=== PATIENT | male | born 1950 | race Caucasian/White ===

== ENCOUNTER 2019-09-21 15:03 | Outpatient (CLI) | payer MEDICARE, OTHER, SELFPAY ==
[2019-09-21 15:55] LABS: Hemoglobin A1C 6.8 % (<5.7)
[2019-09-21 15:57] LABS: Albumin Level 4.7 g/dL (3.5-5.1); Estimated Glomerular Filt Rate 60; Glucose 126 mg/dL (75-110)
[2019-09-28 03:42] LABS: Hematocrit 54.1 % (38.5-50.0); Hemoglobin 17.5 g/dL (13.2-17.1); MCH 32.6 pg (27.0-33.0); MCV 100.9 FL (80.0-100.0); RDW 14.3 % (11.0-15.0); Red Blood Cell Count 5.36 Mill/uL (4.20-5.80)
== END 2019-09-21 15:04 | disposition home or self-care (01) ==
PROVIDERS: PCP Internal Medicine; Visit Provider Orthopaedic Surgery
DX: M17.11 Unilateral primary osteoarthritis, right knee (principal); E13.9 Other specified diabetes mellitus without complications
CPT/HCPCS: 36415; 82040; 82565; 82947; 83021; 83036; 85014; 85018; 85041

== ENCOUNTER 2019-10-16 11:42 | Outpatient (CLI) | payer MEDICARE, OTHER, SELFPAY ==
--- NOTE | 2019-10-16 12:43 | ECG_ITS ---
Measurements Intervals [place] Rate: 63 P: 11 [place]: 181 QRS: 1 QRSD: 89 T: -11 QT: 373 QTc: 382 Interpretive Statements SINUS RHYTHM LOW QRS VOLTAGE IN PRECORDIAL LEADS DELAYED PRECORDIAL R/S TRANSITION INFERIOR INFARCT, AGE INDETERMINATE BASELINE ARTIFACT- I, II, AVR, AVL ABNORMAL ECG Electronically Signed On 10-16-2019 12:59:53 TEXTILE DESIGNER by Curt Reveles D.O.
[2019-10-16 13:12] LABS: Basophils Percent Auto 0.6 % (0.2-1.2); Eosinophils Absolute Auto 0.3 K/mm3 (0-0.3); Eosinophils Percent Auto 4.3 % (0-4.4); Hematocrit 51.9 % (42.0-52.0); Hemoglobin 17.4 g/dL (14.0-18.0); Immature Granulocyte Absolute 0.06 K/mm3 (0.00-0.031); Immature Granulocyte Percent A 0.9 % (0-0.5); Mean Corpuscular HGB Conc 33.5 g/dl (32-36); Mean Corpuscular Hemoglobin 32.1 pg (26-34); Mean Corpuscular Volume 95.8 fl (80-100); Mean Platelet Volume 10.1 fl (7.4-10.4); Monocytes Absolute Auto 0.5 K/mm3 (0.1-0.6); Monocytes Percent Auto 7.9 % (2.6-8.5); Neutrophils Absolute Auto 3.6 K/mm3 (1.3-6.7); Neutrophils Percent Auto 54.3 % (45.5-73.1); Platelet Count Result 155 k/mm3 (150-375); Red Blood Count 5.42 M/mm3 (4.6-6.20); Red Cell Distribution Width 12.6 % (11.5-14.5); White Blood Count 6.6 K/mm3 (4.5-10.0)
[2019-10-16 13:21] LABS: Urine Cotinine NEGATIVE
[2019-10-16 13:31] LABS: Blood Urea Nitrogen 16 mg/dL (9-20); Calcium 9.7 mg/dL (8.4-10.2); Carbon Dioxide 30 mmol/L (22-30); Chloride 101 mmol/L (98-107); Estimated Glomerular Filt Rate 60; Glucose 165 mg/dL (75-110); Potassium 4.9 mmol/L (3.4-5.0); Sodium 138 mmol/L (137-145)
== END 2019-10-16 11:43 | disposition home or self-care (01) ==
PROVIDERS: Anesthesiology; PCP Internal Medicine; Visit Provider Orthopaedic Surgery
DX: Z01.818 Encounter for other preprocedural examination (principal); E11.9 Type 2 diabetes mellitus without complications; R94.31 Abnormal electrocardiogram [ECG] [EKG]; M16.11 Unilateral primary osteoarthritis, right hip
CPT/HCPCS: 36415; 80048; 80307; 85025; 87081; 93005

== ENCOUNTER 2020-01-02 10:41 | Outpatient (CLI) | payer MEDICARE, OTHER, SELFPAY ==
--- NOTE | 2020-01-02 | ECG_ITS ---
Measurements Intervals [place] Rate: 56 P: 40 [place]: 173 QRS: 29 QRSD: 82 T: 50 QT: 403 QTc: 392 Interpretive Statements SINUS BRADYCARDIA DELAYED PRECORDIAL R/S TRANSITION LOW QRS VOLTAGE IN PRECORDIAL LEADS NONSPECIFIC T-WAVE ABNORMALITY- INF/LAT LEADS BORDERLINE ECG Electronically Signed On 01-02-2020 11:40:01 CDT by Curt Reveles D.O.
[2020-01-02 11:12] LABS: Hematocrit 53.7 % (42.0-52.0); Hemoglobin 18.4 g/dL (14.0-18.0)
[2020-01-02 11:22] LABS: Hemoglobin A1C 7.2 % (<5.7)
[2020-01-02 11:23] LABS: Albumin Level 4.7 g/dL (3.5-5.1); Estimated Glomerular Filt Rate 60; Glucose 228 mg/dL (75-110)
== END 2020-01-02 10:42 | disposition home or self-care (01) ==
PROVIDERS: PCP Internal Medicine; Visit Provider Orthopaedic Surgery
DX: M17.11 Unilateral primary osteoarthritis, right knee (principal); E13.9 Other specified diabetes mellitus without complications; R94.31 Abnormal electrocardiogram [ECG] [EKG]
CPT/HCPCS: 36415; 82040; 82565; 82947; 83036; 85014; 85018; 93005

== ENCOUNTER 2020-01-31 13:53 | Outpatient (CLI) | payer MEDICARE, OTHER, SELFPAY ==
[2020-01-31 15:01] LABS: Basophils Percent Auto 0.8 % (0.2-1.2); Eosinophils Absolute Auto 0.2 K/mm3 (0-0.3); Eosinophils Percent Auto 4.5 % (0-4.4); Hemoglobin 16.3 g/dL (14.0-18.0); Immature Granulocyte Absolute 0.04 K/mm3 (0.00-0.031); Immature Granulocyte Percent A 0.8 % (0-0.5); Lymphocytes Absolute Auto 1.72 K/mm3 (0.9-3.2); Lymphocytes Percent Auto 32.5 % (18.3-44.2); Mean Corpuscular Hemoglobin 32.7 pg (26-34); Mean Corpuscular Volume 96.2 fl (80-100); Mean Platelet Volume 9.8 fl (7.4-10.4); Monocytes Absolute Auto 0.5 K/mm3 (0.1-0.6); Monocytes Percent Auto 8.5 % (2.6-8.5); Neutrophils Absolute Auto 2.8 K/mm3 (1.3-6.7); Neutrophils Percent Auto 52.9 % (45.5-73.1); Platelet Count Result 158 k/mm3 (150-375); Red Blood Count 4.99 M/mm3 (4.6-6.20); Red Cell Distribution Width 12.7 % (11.5-14.5); White Blood Count 5.3 K/mm3 (4.5-10.0)
[2020-01-31 15:13] LABS: Urine Cotinine NEGATIVE
[2020-01-31 15:14] LABS: Blood Urea Nitrogen 16 mg/dL (9-20); Calcium 9.5 mg/dL (8.4-10.2); Carbon Dioxide 32 mmol/L (22-30); Chloride 102 mmol/L (98-107); Estimated Glomerular Filt Rate 60; Glucose 169 mg/dL (75-110); Potassium 5.3 mmol/L (3.4-5.0); Sodium 138 mmol/L (137-145)
== END 2020-01-31 13:54 | disposition home or self-care (01) ==
LOC: ANHSURGERY 13:59
PROVIDERS: Anesthesiology; PCP Internal Medicine; Visit Provider Orthopaedic Surgery
DX: Z01.818 Encounter for other preprocedural examination (principal); M16.11 Unilateral primary osteoarthritis, right hip; E11.9 Type 2 diabetes mellitus without complications
CPT/HCPCS: 36415; 80048; 80307; 85025; 87081

== ENCOUNTER 2020-03-01 00:19 | Outpatient (CLI) | payer MEDICARE, OTHER, SELFPAY ==
[2020-03-01 18:31] LABS: SARS-CoV-2 RNA PCR Negative
== END 2020-03-01 00:20 | disposition home or self-care (01) ==
LOC: ANHCOVIDDT 00:20
PROVIDERS: PCP Internal Medicine; Visit Provider Orthopaedic Surgery
DX: Z01.812 Encounter for preprocedural laboratory examination (principal); Z11.59 Encounter for screening for other viral diseases
CPT/HCPCS: 87635; C9803; U0003

== ENCOUNTER 2020-03-04 14:37 | Inpatient (IN) | payer MEDICARE, OTHER, SELFPAY ==
[2019-10-16 12:13] VITALS: BP 120/88; PULSE 68; RESP 20; TEMP 36.6; O2SAT 95; BMI 30.9
[2020-01-31 14:13] VITALS: BP 132/84; PULSE 64; TEMP 36.4; O2SAT 95; BMI 30.7
--- NOTE | 2020-03-03 12:44 | WPDANESEPPF ---
Anes - Initial Pre Proc Eval Procedure: Operation Date: 03/04/20 10:00 Proposed Procedures p Right Total Hip Arthroplasty - Sameer York MD Date/Time: 03/03/20 12:44 Surgeon: Sameer York MD Pre Op Diagnosis: OA Right Hip Patient Data Age: 69 Gender: M Height: 1.8 m Weight: 99.8 kg Last Vital Signs Temp 36.4 C 01/31/20 14:13 Pulse 64 01/31/20 14:13 Resp 20 10/16/19 12:13 BP 132/84 01/31/20 14:13 Pulse Ox 95 01/31/20 14:13 Allergies Allergy/AdvReac Type Severity Reaction Status Date / Time Penicillins Allergy Unknown Rash Verified 02/11/20 08:41 Sulfa (Sulfonamide Allergy Unknown Rash Verified 02/11/20 08:41 Antibiotics) Home Medications Medication Instructions Recorded Confirmed Type aspirin [Ecotrin Low Strength] 81 mg PO DAILY 10/16/19 01/31/20 History atorvastatin 20 mg DAILY 10/16/19 01/31/20 History cholecalciferol (vitamin D3) 2,000 unit PO DAILY 10/16/19 01/31/20 History dulaglutide [Trulicity] 0.75 mg SUBCUT WEEKLY 10/16/19 01/31/20 History empagliflozin 25 mg PO DAILY 10/16/19 01/31/20 History gabapentin 300 mg PO DAILY 10/16/19 01/31/20 History gabapentin 600 mg PO HS 10/16/19 01/31/20 History insulin glargine [Lantus U-100 44 unit SUBCUT DAILY 10/16/19 01/31/20 History Insulin] levothyroxine 112 mcg PO DAILY 10/16/19 01/31/20 History meloxicam 15 mg PO DAILY 10/16/19 01/31/20 History metoprolol tartrate 50 mg PO BID 10/16/19 01/31/20 History pantoprazole 40 mg PO QAM 10/16/19 01/31/20 History sertraline 150 mg PO DAILY 10/16/19 01/31/20 History valsartan 80 mg PO DAILY 10/16/19 01/31/20 History diclofenac sodium 1 % topical gel 4 gm TOPICAL QID #100 gm 11/01/19 01/31/20 Rx hydrocodone-acetaminophen 1 tablet PO Q6H PRN 01/31/20 01/31/20 History hydrocodone 5 mg-acetaminophen 325 1 - 2 tablet PO BID PRN #30 tablet 02/11/20 02/11/20 Rx mg tablet Patient hx anesthesia problems: none Family hx anesthesia problems: none PMFSH Past Medical History Medical History Arthritis Back pain Diabetes Gastroesophageal reflux disease High cholesterol Hypertension Hypothyroidism Incomplete tear of right rotator cuff Obesity DELMER (obstructive sleep apnea) Primary osteoarthritis of right hip Primary osteoarthritis of right knee Surgical History Surgical History History of hammertoe correction History of repair of rotator cuff History of right knee surgery Family History Family History Mother Family history of arthritis Sibling Family history of malignant neoplasm Social History Social History Smoking status: Never smoker Alcohol intake: never Anes - Eval Final PreProcedure Day of Procedure 03/03/20 12:44 Patient weight: obese Heart: regular rate and rhythm Lungs: clear to auscultation and normal air movement Airway: Mallampati scale class II Neurological: alert and oriented Last oral intake: >/= 8 hours ASA classification: III Emergent: no Anesthetic plan: proceed Anesthesia type and monitoring: general LMA and ETT Informed Consent: The patient's anesthetic plan and its attendant risks and benefits were discussed with the patient/family/POA. Questions were solicited and answers provided to the satisfaction of the patient/family/POA.
[2020-03-04] VITALS (16 sets, daily range): BP systolic 79–133; BP diastolic 55–82; PULSE 54–62; RESP 8–20; TEMP 35.6–36.4; O2SAT 62–100
--- NOTE | ~2020-03-04 | XR_ITS ---
XR hip RT min 2V DATE: 03/04/2020 12:59 INDICATION: Right total hip replacement TECHNIQUE: Portable postoperative AP and crosstable lateral views of right hip COMPARISON: 10/22/2019 [facility] right hip FINDINGS: Status post right femoral head and neck resection and placement of bipolar right femoral he ad prosthesis in the acetabular fossa. There is mild expected postoperative subcutaneous emphysema. There is osteoarthritis of the left hip. The pubic symphysis and sacroiliac joints are intact. IMPRESSION: Right bipolar hip replacement Reviewed, dictated and finalized at location B.
--- NOTE | 2020-03-04 07:13 | WPDHPUPDATE1 ---
History and Physical Update Update Date/Time: 03/04/20 07:13 History and Physical has been reviewed, including an updated exam of the patient. There are NO changes in the patient's condition. Risks, benefits, and alternatives have been discussed and questions answered. Patient agrees to proceed with procedure.
[2020-03-04] MEDS: LACTATED RINGERS 1,000 ML 30 ML IV CONT ×2 (09:45→12:34)
[2020-03-04] MEDS: ACETAMINOPHEN 500 MG TABLET 1000 MG PO (09:45)
[2020-03-04] MEDS: KETOROLAC 15 MG/ML VIAL (*BKC) IV PUSH (09:49)
[2020-03-04] MEDS: TRANEXAMIC ACID 1,000MG/ISO100 1,000 MG/100 ML BAG 200 MG IVPB (09:49)
[2020-03-04 09:52] LABS: Glucose Point of Care 128 (65-105)
[2020-03-04] MEDS: ceFAZolin 2 GM/D5W 50 ML 2 GM/50 ML BAG IVPB (10:17)
--- NOTE | 2020-03-04 12:26 | P.OP_ITS ---
Procedure Note - Detailed Date of procedure: 03/04/20 Pre-op diagnosis: OA Right Hip Post-op diagnosis: same Procedure performed: Total hip arthroplasty. Description of procedure: Leg length discrepancy correction (right short) with slight lengthening. Implants: The Accolade II hip stem, 127 degree size 6 , was utilized with excellent press-fit. The 56 mm ADM acetabular component was impacted with excellent press-fit stability. The +0 , 28 mm Biolox ceramic femoral head was utilized. Anesthesia: GLMA Surgeon: Sameer York MD Estimated blood loss (mL): 300 Drains: No Pathology: none sent Complications: None Condition: stable Disposition: PACU Findings: OPERATIVE DETAILS: The patient was given preoperative antibiotics. A general anesthetic was administered. The patient was carefully placed in the lateral decubitus position on the PEG board. The shoulders and hips were carefully positioned for component and leg length positioning reference. The hip was prepped and draped in the usual sterile fashion. A longitudinal incision was created over the posterior aspect of the greater trochanter. Careful dissection was brought down through the deep fascia with electrocautery. A minimally invasive optimized posterior approach to the hip was performed. The short external rotators and capsule were taken down in an L-shaped capsulotomy. The tissue was tagged for later repair using number 2 high strength suture. The femoral neck was measured and taken in situ. The femoral head was removed. The acetabulum was carefully exposed. The inferior capsule was released. The labrum was resected. The acetabulum was sequentially reamed to one over the intended cup size. The cup was impacted into position with excellent press-fit. Typical anatomic landmarks, including the bony contact points as well as the inferior transverse acetabular ligament were used to confirm cup positioning with preoperative templating. Attention was turned to the femur, which was carefully exposed. The hip was reamed and then broached sequentially. Excellent press-fit was obtained with the broach. The hip was trialed. Measurements were utilized, including the lesser trochanter as well as the center of the femoral head and the tip of the trochanter, and excellent assessment of the offset and leg lengths were confirmed. The real component was impacted into position. Trialing confirmed appropriate leg length and offset with soft tissue balancing as well apparent feel of the leg, both at the knee and the heel. Soft tissues were assessed using the the iliotibial band. Reduction of the posterior capsule and external rotators were also used as a secondary assessment. The hip was copiously irrigated with pulsatile lavage antibiotic solution periodically throughout the procedure. The real components were then assembled and reduced. The hip was stable throughout typical maneuvers, including extension, external rotation to 70 degrees, the position of sleep as well as flexion to 90 degrees with internal rotation past 45 degrees. The shake test confirmed stability without impingement. Osteophytes were removed as necessary. The short external rotators and capsule were repaired back to the posterior trochanter through drill holes. The deep fascia was repaired with running number 2 Quill suture, followed by 0 Stratafix suture and 2-0 Stratafix suture in the dermis. Steri- Strips were placed on the skin, followed by a sterile silver occlusive dressing. There were no complications. Meticulous hemostasis was maintained with the AquaMantys device. The patient was brought to the recovery room in stable condition. There were no complications.
[2020-03-04 14:05] LABS: Glucose Point of Care 172 (65-105)
[2020-03-04 15:57] LABS: Hematocrit 43.2 % (42.0-52.0); Hemoglobin 14.7 g/dL (14.0-18.0)
[2020-03-04] MEDS: ASPIRIN 81 MG ENTERIC TABLET PO (17:56)
[2020-03-04] MEDS: DOCUSATE SODIUM 100 MG CAPSULE PO (21:03)
[2020-03-04] MEDS: METOPROLOL TARTRATE 50 MG TAB PO (21:03)
[2020-03-04] MEDS: GABAPENTIN 300 MG CAPSULE 600 MG PO (21:03)
[2020-03-05] VITALS (9 sets, daily range): BP systolic 85–115; BP diastolic 48–70; PULSE 58–80; RESP 12–20; TEMP 36–36.4; O2SAT 20–99
[2020-03-05 05:28] LABS: Basophils Absolute Auto 0.1 K/mm3 (0.0-0.1); Basophils Percent Auto 0.5 % (0.2-1.2); Eosinophils Percent Auto 0.3 % (0-4.4); Hematocrit 41.4 % (42.0-52.0); Hemoglobin 13.9 g/dL (14.0-18.0); Immature Granulocyte Absolute 0.03 K/mm3 (0.00-0.031); Immature Granulocyte Percent A 0.3 % (0-0.5); Lymphocytes Absolute Auto 1.31 K/mm3 (0.9-3.2); Lymphocytes Percent Auto 13.3 % (18.3-44.2); Mean Corpuscular HGB Conc 33.6 g/dl (32-36); Mean Corpuscular Hemoglobin 32.9 pg (26-34); Mean Corpuscular Volume 98.1 fl (80-100); Mean Platelet Volume 10.6 fl (7.4-10.4); Monocytes Absolute Auto 0.9 K/mm3 (0.1-0.6); Monocytes Percent Auto 9.3 % (2.6-8.5); Neutrophils Absolute Auto 7.5 K/mm3 (1.3-6.7); Neutrophils Percent Auto 76.3 % (45.5-73.1); Platelet Count Result 147 k/mm3 (150-375); Red Blood Count 4.22 M/mm3 (4.6-6.20); Red Cell Distribution Width 13.2 % (11.5-14.5); White Blood Count 9.9 K/mm3 (4.5-10.0)
[2020-03-05 05:32] LABS: Blood Urea Nitrogen 21 mg/dL (9-20); Calcium 8.7 mg/dL (8.4-10.2); Carbon Dioxide 28 mmol/L (22-30); Chloride 98 mmol/L (98-107); Estimated CRCL calculation 66 ml/min; Estimated Glomerular Filt Rate > 60; Glucose 210 mg/dL (75-110); Potassium 4.2 mmol/L (3.4-5.0); Sodium 133 mmol/L (137-145)
[2020-03-05] MEDS: LEVOTHYROXINE SODIUM 112 MCG TABLET PO (05:47)
--- NOTE | 2020-03-05 07:37 | P.PNAN_ITS ---
Anes - Prog Note Post-Op Date/Time: 03/05/20 07:37 Cardiovascular status: normal Respiratory status: normal Airway patency: baseline Mental status: baseline Post-Op hydration status: normal Vital Signs: Last Vital Signs Temp 36.1 C L 03/05/20 04:45 Pulse 62 03/05/20 04:45 Resp 20 03/05/20 00:45 BP 92/62 L 03/05/20 04:45 Pulse Ox 20 L 03/05/20 04:45 I/O: Intake & Output 03/04/20 03/04/20 03/05/20 15:59 23:59 07:59 Intake Total 600 510 540 Output Total 300 Balance 600 510 240 Laboratory Tests 03/05/20 05:03 03/05/20 05:03 03/04/20 03/04/20 03/04/20 09:30 09:49 14:02 WBC RBC Hgb Hct MCV MCH MCHC RDW Plt Count MPV Immature Gran % (Auto) Neut % (Auto) Lymph % (Auto) [place] % (Auto) Eos % (Auto) Baso % (Auto) Lymph # (Auto) [place] # (Auto) Eos # (Auto) Baso # (Auto) Abs Immat Gran (auto) Absolute Neuts (auto) Absolute Nucleated RBC Nucleated RBC % Sodium Potassium Chloride Carbon Dioxide BUN Creatinine Estim Creat Clear Calc Estimated GFR Glucose POC Capillary Glucose 128 H 172 H Calcium Blood Type O Positive Antibody Screen Negative 03/04/20 03/05/20 03/05/20 15:05 05:03 05:03 WBC 9.9 RBC 4.22 L Hgb 14.7 13.9 L Hct 43.2 41.4 L MCV 98.1 MCH 32.9 MCHC 33.6 RDW 13.2 Plt Count 147 L MPV 10.6 H Immature Gran % (Auto) 0.3 Neut % (Auto) 76.3 H Lymph % (Auto) 13.3 L [place] % (Auto) 9.3 H Eos % (Auto) 0.3 Baso % (Auto) 0.5 Lymph # (Auto) 1.31 [place] # (Auto) 0.9 H Eos # (Auto) 0.0 Baso # (Auto) 0.1 Abs Immat Gran (auto) 0.03 Absolute Neuts (auto) 7.5 H Absolute Nucleated RBC 0.0 Nucleated RBC % 0.0 Sodium 133 L Potassium 4.2 Chloride 98 Carbon Dioxide 28 BUN 21 H Creatinine 1.10 Estim Creat Clear Calc 66 Estimated GFR > 60 Glucose 210 H POC Capillary Glucose Calcium 8.7 Blood Type Antibody Screen Post-procedural complaints: none Patient Feedback: Patient satisfied with anesthetic care.
[2020-03-05] MEDS: INSULIN GLARGINE (*BKC) 100 UNITS/ML 44 UNITS SUB-Q (09:19)
[2020-03-05] MEDS: MELOXICAM 7.5 MG TABLET 15 MG PO (09:20)
[2020-03-05] MEDS: GABAPENTIN 300 MG CAPSULE PO (09:20)
[2020-03-05] MEDS: METOPROLOL TARTRATE 50 MG TAB PO (09:20)
[2020-03-05] MEDS: VALSARTAN 80 MG TABLET PO (09:20)
[2020-03-05] MEDS: SERTRALINE HCL 50 MG TABLET 150 MG PO (09:20)
[2020-03-05] MEDS: PANTOPRAZOLE 40 MG TABLET PO (09:21)
[2020-03-05] MEDS: CHOLECALCIFEROL 1,000 UNIT TABLET 2000 UNITS PO (09:21)
[2020-03-05] MEDS: DOCUSATE SODIUM 100 MG CAPSULE PO ×2 (09:21→21:31)
[2020-03-05] MEDS: ASPIRIN 81 MG ENTERIC TABLET PO ×2 (09:21→17:01)
[2020-03-05] MEDS: ATORVASTATIN 20 MG TABLET PO (09:21)
[2020-03-05 09:39] LABS: Glucose Point of Care 292 (65-105)
[2020-03-05 11:44] LABS: Glucose Point of Care 238 (65-105)
[2020-03-05] MEDS: INSULIN ASPART (*BKC) 100 UNITS/ML SUB-Q ×2 (12:00→17:00)
--- NOTE | 2020-03-05 12:31 | PM.IMCN ---
Assessment and Plan Assessment and plan (1) Primary osteoarthritis of right hip: Code(s): M16.11 - Unilateral primary osteoarthritis, right hip Status: Acute Assessment and Plan: Mike Monson is a 69 year old male With past medical history of diabetes for which patient is taking Lantus 44 units daily, metformin 500 mg q.day, and Trulicity once weekly, patient has history of hypertension which patient is taking valstran 80 mg q.day, metoprolol 50 mg b.i.d. and hyperlipidemia for which patient is taking Lipitor 20 mg q.day patient had been seen his orthopedic surgeon with severe osteoarthritis right hip conservative management failed and patient was taken to OR and had a right hip total arthroplasty, POD#1, today patient states the pain in the hip is persisting, he was able to ambulate with physical therapy, he denies any abdominal pain nausea or vomiting fever or chills, chest pain palpitation or dizziness, (2) Hypertension: Code(s): I10 - Essential (primary) hypertension Status: Acute Assessment and Plan: patient blood pressure is on soft sound most likely secondary pain medication and dehydration will continue to monitor (3) Diabetes: Code(s): E11.9 - Type 2 diabetes mellitus without complications Status: Acute Assessment and Plan: will resume patient's home medication and monitor low sliding scale HPI Data of Consult Consult date: 03/05/20 Requesting Physician: Sameer York MD Primary Care Provider: Rosanna WardMD Consult Narrative Narrative: Mike Monson is a 69 year old male With past medical history of diabetes for which patient is taking Lantus 44 units daily, metformin 500 mg q.day, and Trulicity once weekly, patient has history of hypertension which patient is taking valstran 80 mg q.day, metoprolol 50 mg b.i.d. and hyperlipidemia for which patient is taking Lipitor 20 mg q.day patient had been seen his orthopedic surgeon with severe osteoarthritis right hip conservative management failed and patient was taken to OR and had a right hip total arthroplasty, POD#1, today patient states the pain in the hip is persisting, he was able to ambulate with physical therapy, he denies any abdominal pain nausea or vomiting fever or chills, chest pain palpitation or dizziness, Review of Systems Review of Systems: All systems reviewed & are unremarkable except as noted in HPI and below PMFSH Past Medical History Medical History Arthritis Back pain Diabetes Gastroesophageal reflux disease High cholesterol Hypertension Hypothyroidism Incomplete tear of right rotator cuff Obesity DELMER (obstructive sleep apnea) Primary osteoarthritis of right hip Primary osteoarthritis of right knee Surgical History Surgical History History of hammertoe correction History of repair of rotator cuff History of right knee surgery Family History Family History Mother Family history of arthritis Sibling Family history of malignant neoplasm Social History Social History Smoking packs per day: 3 Smoking cigarettes per day: 60.0 Years smoked: 25 Smoking pack-years: 75.00 Smoking status: Former smoker Tobacco type: cigarettes Alcohol intake: former Substance use: never Gender identity (if verbalized by the patient): Male Spiritual care concerns: No Meds Home Medications and Allergies Home Medications Medication Instructions Recorded Confirmed Type aspirin [Ecotrin Low Strength] 81 mg PO DAILY 10/16/19 03/04/20 History atorvastatin 20 mg DAILY 10/16/19 03/04/20 History cholecalciferol (vitamin D3) 2,000 unit PO DAILY 10/16/19 03/04/20 History dulaglutide [Trulicity] 0.75 mg SUBCUT WEEKLY 10/16/19 03/04/20 History
[2020-03-05 16:44] LABS: Glucose Point of Care 271 (65-105)
--- NOTE | 2020-03-05 16:45 | PM.PNORT ---
Progress Note: A&P Assessment and Plan (1) Status post total hip replacement, right: Code(s): Z96.641 - Presence of right artificial hip joint Status: Acute Assessment and Plan: postoperative day 1 status post right total hip arthroplasty. Moderate pain. Hypotension. Appreciate hospitalist assistance. Will monitor these issues. Continue therapy. Possible discharge home tomorrow. Subjective Subjective Date/Time Seen: 03/05/20 16:45 Interval history: Some pain control issues. Exam Narrative: Exam Narrative: Wound is healing well. No drainage, or hematoma. Anterior tibialis and EHL 5/5. No edema. Calves non tender. Const: Orientation/consciousness: patient oriented x3 Neuro: General: patient oriented x3 Extrem: General: capillary refill normal, no calf tenderness bilaterally and no pedal edema Psych: Affect: normal affect Objective Data Vital Signs Vital Signs: Vital Signs - 24 hr 03/04/20 20:45 03/04/20 21:03 03/05/20 00:45 Temperature 36.1 C L 36.3 C L Pulse Rate 60 60 60 Respiratory Rate 20 20 Blood Pressure 91/56 L 97/58 L Pulse Oximetry 92 94 03/05/20 04:45 03/05/20 08:10 03/05/20 08:12 Temperature 36.1 C L 36.0 C L Pulse Rate 62 58 L Respiratory Rate 12 Blood Pressure 92/62 L 87/58 L 98/70 L Pulse Oximetry 20 L 98 03/05/20 09:20 03/05/20 09:56 03/05/20 12:45 Temperature 36.4 C L 36.1 C L Pulse Rate 58 L 63 80 Respiratory Rate 14 16 Blood Pressure 85/51 L 94/48 L Pulse Oximetry 99 90 Intake/Output Intake/Output: Intake & Output 03/02/20 03/03/20 03/04/20 03/05/20 23:59 23:59 23:59 23:59 Intake Total 1110 1340 Output Total 300 Balance 1110 1040 Meds/Results Medications: Active Medications Generic Name Dose Route Start Last Admin Trade Name Freq PRN Reason Stop Dose Admin Aspirin 81 mg 03/04/20 17:00 03/05/20 09:21 Aspirin Ec PO 81 mg BID RODOLFO Administration Atorvastatin Calcium 20 mg 03/05/20 09:00 03/05/20 09:21 Lipitor PO 20 mg DAILY RODOLFO Administration Dextrose 12.5 gm 03/05/20 09:44 Dextrose 50% Syringe IV PUSH PRN PRN Hypoglycemia Protocol Diazepam 5 mg 03/04/20 14:37 Valium Po PO Q6H PRN Anxiety/Muscle Spasm Docusate Sodium 100 mg 03/04/20 21:00 03/05/20 09:21 Colace Capsule PO 100 mg Q12HR RODOLFO Administration Gabapentin 300 mg 03/05/20 09:00 03/05/20 09:20 Neurontin PO 300 mg DAILY RODOLFO Administration Gabapentin 600 mg 03/04/20 21:00 03/04/20 21:03 Neurontin PO 600 mg HS RODOLFO Administration Glucagon 1 mg 03/05/20 09:44 Glucagon For Inj IM PRN PRN Hypoglycemia Protocol Glucose 15 gm 03/05/20 09:44 Glutose 15 PO PRN PRN Hypoglycemia Protocol Acetaminophen 1,000 mg in 100 mls @ 400 mls/hr 03/04/20 18:00 03/05/20 12:07 Ofirmev 1,000 Mg Ivpb IVPB 03/05/20 18:01 Infused Q6HR RODOLFO Infusion Dextrose 1,000 mls @ 100 mls/hr 03/05/20 09:44 Dextrose 5% 1,000 Ml IVPB PRN PRN Hypoglycemia Protocol Insulin Aspart 2 - 5 units 03/05/20 12:00 03/05/20 12:00 Novolog SUB-Q 2 units TIDWM RODOLFO Administration Protocol Insulin Glargine 44 units 03/05/20 09:00 03/05/20 09:19 Lantus SUB-Q 44 units DAILY RODOLFO Administration Levothyroxine Sodium 112 mcg 03/05/20 06:30 03/05/20 05:47 Synthroid PO 112 mcg DAILY@0630 RODOLFO Administration Magnesium Hydroxide 30 ml 03/04/20 14:37 Milk Of Magnesia PO BID PRN Constipation Meloxicam 15 mg 03/05/20 09:00 03/05/20 09:20 Mobic PO 04/04/20 09:01 15 mg DAILY RODOLFO Administration Meperidine HCl 100 mg 03/04/20 14:37 Demerol IM Q3H PRN Pain10, breakthough only Metoprolol Tartrate 50 mg 03/04/20 21:00 03/05/20 09:20 Lopressor PO 50 mg Q12HR RODOLFO Administration Naloxone HCl 0.1 mg 03/04/20 14:37 Narcan IV PUSH Q2M PRN Opiate Revers
[2020-03-05] MEDS: GABAPENTIN 300 MG CAPSULE 600 MG PO (21:31)
[2020-03-05 23:28] LABS: Glucose Point of Care 242 (65-105)
[2020-03-06 01:16] VITALS: BP 117/68; PULSE 68; RESP 20; TEMP 36.2; O2SAT 94
[2020-03-06 06:01] VITALS: BP 120/63; PULSE 77; RESP 20; TEMP 36.6; O2SAT 93
[2020-03-06] MEDS: LEVOTHYROXINE SODIUM 112 MCG TABLET PO (06:30)
[2020-03-06 07:54] LABS: Glucose Point of Care 190 (65-105)
--- NOTE | 2020-03-06 08:38 | PCOTNOTE ---
Attempted to see patient this am, however patient declined. Pt stated he already dressed this morning. Verbally reviewed dressing techniques with adaptive equipment and hip precautions. Issued long handled sponge for safe showering at home. Pt stated he will have assistance from at home. Pt has no further concerns at this time as pertains to OT.
[2020-03-06] MEDS: INSULIN GLARGINE (*BKC) 100 UNITS/ML 24 UNITS SUB-Q (08:41)
[2020-03-06 08:44] VITALS: PULSE 77
[2020-03-06] MEDS: METOPROLOL TARTRATE 50 MG TAB PO ×2 (08:44→21:43)
[2020-03-06] MEDS: CHOLECALCIFEROL 1,000 UNIT TABLET 2000 UNITS PO (08:44)
[2020-03-06] MEDS: PANTOPRAZOLE 40 MG TABLET PO (08:45)
[2020-03-06] MEDS: ASPIRIN 81 MG ENTERIC TABLET PO ×2 (08:45→17:16)
[2020-03-06] MEDS: SERTRALINE HCL 50 MG TABLET 150 MG PO (08:45)
[2020-03-06] MEDS: ATORVASTATIN 20 MG TABLET PO (08:45)
[2020-03-06] MEDS: GABAPENTIN 300 MG CAPSULE PO (08:45)
[2020-03-06] MEDS: MELOXICAM 7.5 MG TABLET 15 MG PO (08:45)
[2020-03-06] MEDS: DOCUSATE SODIUM 100 MG CAPSULE PO ×2 (08:45→21:43)
[2020-03-06] MEDS: VALSARTAN 80 MG TABLET PO (08:45)
[2020-03-06 11:39] LABS: Glucose Point of Care 293 (65-105)
[2020-03-06] MEDS: INSULIN ASPART (*BKC) 100 UNITS/ML SUB-Q ×2 (11:57→17:15)
--- NOTE | 2020-03-06 13:43 | PM.IMPN ---
Progress Note: A&P Assessment and Plan (1) Primary osteoarthritis of right hip: Code(s): M16.11 - Unilateral primary osteoarthritis, right hip Status: Acute Assessment and Plan: 03/06/20 13:43 Mike Monson is a 69 year old male With past medical history of diabetes for which patient is taking Lantus 44 units daily, metformin 500 mg q.day, and Trulicity once weekly, patient has history of hypertension which patient is taking valstran 80 mg q.day, metoprolol 50 mg b.i.d. and hyperlipidemia for which patient is taking Lipitor 20 mg q.day patient had been seen his orthopedic surgeon with severe osteoarthritis right hip conservative management failed and patient was taken to OR and had a right hip total arthroplasty, POD#2, today patient states the pain in the hip is better , he was able to ambulate with physical therapy, he denies any abdominal pain nausea or vomiting fever or chills, denies, chest pain palpitation or dizziness, patient will be seen by his surgeon may discharge him home today (2) Hypertension: Code(s): I10 - Essential (primary) hypertension Status: Acute Assessment and Plan: patient blood pressure is on soft sound most likely secondary pain medication and dehydration will continue to monitor, today patient blood pressure is trending up close to normal. (3) Diabetes: Code(s): E11.9 - Type 2 diabetes mellitus without complications Status: Acute Assessment and Plan: will resume patient's home medication and monitor low sliding scale Subjective Date/time seen: 03/06/20 13:43 Mike Monson is a 69 year old male With past medical history of diabetes for which patient is taking Lantus 44 units daily, metformin 500 mg q.day, and Trulicity once weekly, patient has history of hypertension which patient is taking valstran 80 mg q.day, metoprolol 50 mg b.i.d. and hyperlipidemia for which patient is taking Lipitor 20 mg q.day patient had been seen his orthopedic surgeon with severe osteoarthritis right hip conservative management failed and patient was taken to OR and had a right hip total arthroplasty, POD#2, today patient states the pain in the hip is better , he was able to ambulate with physical therapy, he denies any abdominal pain nausea or vomiting fever or chills, denies, chest pain palpitation or dizziness, patient will be seen by his surgeon may discharge him home today Review of Systems Review of Systems: All systems reviewed & are unremarkable except as noted in HPI and below Exam Const: General: comfortable and no acute distress HENMT: General nose exam: Normal nares present Mouth: Yes moist mucous membranes Eyes: General: appearance normal, both eyes and all related structures Sclera: sclerae normal Neck: Neck: supple Resp: Effort & Inspection: normal respiratory effort Auscultation: clear to auscultation bilaterally Cardio: Rate: regular rate Rhythm: regular rhythm GI: Auscultation: normal bowel sounds Skin: General skin exam: normal color Neuro: Speech: normal speech Sensory Exam: normal sensation Extrem: Other: bilateral lower extremity symmetric there is no internal or external rotation Psych: Affect: Anxious affect present Objective Data Vital Signs Vital Signs: Vital Signs - 24 hr 03/05/20 16:45 03/05/20 22:14 03/06/20 01:16 Temperature 97.5 F L 97.3 F L 97.2 F L Pulse Rate 63 71 68 Respiratory Rate 14 20 20 Blood Pressure 95/57 L 115/63 117/68 Pulse Oximetry 97 95 94 03/06/20 06:01 03/06/20 08:44 Temperature 98 F Pulse Rate 77 77 Respiratory Rate 20 Blood Pressure 120/63 Pulse Oximetry 93 Intake/Output Intake/Output: Intake & Output 03/03/20 03/04/20 03/05/20 03/06/20 23:59 23:59 23:59 23:59 Intake Total 1110 3180 430 Output Total 900 1200 Balance 1110 2280 -770 Meds/Results Medications: Active Medications Generic Name Dose Route Start Last Admin Trade Name Tiagoq BRAXTON Mckaya
[2020-03-06 14:00] VITALS: BP 93/55; PULSE 65; RESP 17; TEMP 36.6; O2SAT 95
--- NOTE | 2020-03-06 16:15 | PM.PNORT ---
Progress Note: A&P Assessment and Plan (1) Status post total hip replacement, right: Code(s): Z96.641 - Presence of right artificial hip joint Status: Acute Assessment and Plan: Progressing slowly. Blood pressure is improving. Pain control adequate. Plan discharge home tomorrow morning. Subjective Subjective Date/Time Seen: 03/06/20 16:15 Post Op day: 2 Interval history: Moderate pain. Mobilizing slowly. Exam Narrative: Exam Narrative: Wound healing well. Light touch sensation intact. No drainage. Mild swelling. Objective Data Vital Signs Vital Signs: Vital Signs - 24 hr 03/05/20 16:45 03/05/20 22:14 03/06/20 01:16 Temperature 36.4 C L 36.3 C L 36.2 C L Pulse Rate 63 71 68 Respiratory Rate 14 20 20 Blood Pressure 95/57 L 115/63 117/68 Pulse Oximetry 97 95 94 03/06/20 06:01 03/06/20 08:44 03/06/20 14:00 Temperature 36.6 C 36.6 C Pulse Rate 77 77 65 Respiratory Rate 20 17 Blood Pressure 120/63 93/55 L Pulse Oximetry 93 95 Intake/Output Intake/Output: Intake & Output 03/03/20 03/04/20 03/05/20 03/06/20 23:59 23:59 23:59 23:59 Intake Total 1110 3180 430 Output Total 900 1200 Balance 1110 2280 -770 Meds/Results Medications: Active Medications Generic Name Dose Route Start Last Admin Trade Name Freq PRN Reason Stop Dose Admin Aspirin 81 mg 03/04/20 17:00 03/06/20 08:45 Aspirin Ec PO 81 mg BID RODOLFO Administration Atorvastatin Calcium 20 mg 03/05/20 09:00 03/06/20 08:45 Lipitor PO 20 mg DAILY RODOLFO Administration Dextrose 12.5 gm 03/05/20 09:44 Dextrose 50% Syringe IV PUSH PRN PRN Hypoglycemia Protocol Diazepam 5 mg 03/04/20 14:37 Valium Po PO Q6H PRN Anxiety/Muscle Spasm Docusate Sodium 100 mg 03/04/20 21:00 03/06/20 08:45 Colace Capsule PO 100 mg Q12HR RODOLFO Administration Gabapentin 300 mg 03/05/20 09:00 03/06/20 08:45 Neurontin PO 300 mg DAILY RODOLFO Administration Gabapentin 600 mg 03/04/20 21:00 03/05/20 21:31 Neurontin PO 600 mg HS RODOLFO Administration Glucagon 1 mg 03/05/20 09:44 Glucagon For Inj IM PRN PRN Hypoglycemia Protocol Glucose 15 gm 03/05/20 09:44 Glutose 15 PO PRN PRN Hypoglycemia Protocol Dextrose 1,000 mls @ 100 mls/hr 03/05/20 09:44 Dextrose 5% 1,000 Ml IVPB PRN PRN Hypoglycemia Protocol Insulin Aspart 2 - 5 units 03/05/20 12:00 03/06/20 11:57 Novolog SUB-Q 3 units TIDWM RODOLFO Administration Protocol Insulin Glargine 44 units 03/05/20 09:00 03/05/20 09:19 Lantus SUB-Q 44 units DAILY RODOLFO Administration Levothyroxine Sodium 112 mcg 03/05/20 06:30 03/06/20 06:30 Synthroid PO 112 mcg DAILY@0630 RODOLFO Administration Magnesium Hydroxide 30 ml 03/04/20 14:37 Milk Of Magnesia PO BID PRN Constipation Meloxicam 15 mg 03/05/20 09:00 03/06/20 08:45 Mobic PO 04/04/20 09:01 15 mg DAILY RODOLFO Administration Meperidine HCl 100 mg 03/04/20 14:37 Demerol IM Q3H PRN Pain10, breakthough only Metoprolol Tartrate 50 mg 03/04/20 21:00 03/06/20 08:44 Lopressor PO 50 mg Q12HR RODOLFO Administration Naloxone HCl 0.1 mg 03/04/20 14:37 Narcan IV PUSH Q2M PRN Opiate Reversal Ondansetron HCl 4 mg 03/04/20 14:37 Zofran Inj IV PUSH Q4H PRN Nausea And Vomiting Oxycodone HCl 5 mg 03/04/20 14:37 03/05/20 08:47 Roxicodone Ir Tablet PO 5 mg Q4H PRN Administration Pain Rated 4-6 Oxycodone HCl 10 mg 03/04/20 14:37 03/06/20 08:49 Roxicodone Ir Tablet PO 10 mg Q4H PRN Administration Pain Rated 7-10 Pantoprazole Sodium 40 mg 03/05/20 09:00 03/06/20 08:45 Protonix PO 40 mg QAM RODOLFO Administration Sertraline HCl 150 mg 03/05/20 09:00 03/06/20 08:45 Zoloft PO 150 mg DAILY RODOLFO Administration Valsartan 80 mg 03/05/20 09:00 03/06/20 08:4
[2020-03-06 16:39] LABS: Glucose Point of Care 245 (65-105)
[2020-03-06 21:43] VITALS: PULSE 70
[2020-03-06] MEDS: GABAPENTIN 300 MG CAPSULE 600 MG PO (21:43)
[2020-03-06] MEDS: diazePAM 5 MG TABLET PO (21:43)
[2020-03-06 22:09] LABS: Glucose Point of Care 303 (65-105)
[2020-03-06 22:13] VITALS: BP 104/62; PULSE 70; RESP 20; TEMP 36.4; O2SAT 96
[2020-03-07] MEDS: LEVOTHYROXINE SODIUM 112 MCG TABLET PO (05:34)
[2020-03-07 05:42] VITALS: BP 124/75; PULSE 66; RESP 20; TEMP 36.3; O2SAT 97
[2020-03-07 07:55] LABS: Glucose Point of Care 184 (65-105)
[2020-03-07] MEDS: ATORVASTATIN 20 MG TABLET PO (09:40)
[2020-03-07] MEDS: ASPIRIN 81 MG ENTERIC TABLET PO (09:40)
[2020-03-07] MEDS: GABAPENTIN 300 MG CAPSULE PO (09:41)
[2020-03-07] MEDS: DOCUSATE SODIUM 100 MG CAPSULE PO (09:41)
[2020-03-07] MEDS: PANTOPRAZOLE 40 MG TABLET PO (09:41)
[2020-03-07] MEDS: CHOLECALCIFEROL 1,000 UNIT TABLET 2000 UNITS PO (09:41)
[2020-03-07] MEDS: MELOXICAM 7.5 MG TABLET 15 MG PO (09:41)
[2020-03-07] MEDS: SERTRALINE HCL 50 MG TABLET 150 MG PO (09:41)
[2020-03-07 09:42] VITALS: PULSE 68
[2020-03-07] MEDS: METOPROLOL TARTRATE 50 MG TAB PO (09:42)
[2020-03-07] MEDS: VALSARTAN 80 MG TABLET PO (09:42)
[2020-03-07] MEDS: INSULIN GLARGINE (*BKC) 100 UNITS/ML 44 UNITS SUB-Q (09:44)
--- NOTE | 2020-03-07 10:45 | PM.DS ---
DS: Admitting Diagnosis Admitting Diagnosis Admitting Diagnosis: Type 2 diabetes mellitus without complications DS: Discharge Diagnosis Discharge Diagnosis (1) Status post total hip replacement, right: Code(s): Z96.641 - Presence of right artificial hip joint Status: Acute DS: Summary Hospital Course Reason for hospitalization: Total hip arthroplasty. Hospital Course: Hypotension post operatively. Hospitalist for medical and diabetes management. Progressed slowly with therapy. Status at Discharge Functional status at discharge: uses cane/walker Time Spent with Patient Time attestation: Total time spent providing and/or coordinating discharge services: Exam Const: General: no acute distress Resp: Effort & Inspection: normal respiratory effort Skin: Other: Wound healing well. Mepilex dressing intact. No hematoma or drainage. Neuro: Motor exam (neuro): 5/5 motor strength present throughout Sensory Exam: normal sensation Psych: Mental Status: mental status grossly normal Speech and movement: Normal speech and movement present DS: Data Data Completed and Pending Labs on day of discharge: Labs from last 24 hours 03/07/20 03/06/20 03/06/20 07:45 21:47 16:34 POC Capillary Glucose 184 H 303 H 245 H 03/06/20 11:34 POC Capillary Glucose 293 H Discharge Plan Discharge Attending physician on discharge: Sameer York Consulting providers: Parth Diehl Discharging Clinician: Sameer York Patient Disposition: Home, Self-Care Activity: may shower Diet: as tolerated Wound Care Instructions: follow printed instructions Discharge Instructions: See instruction sheet. Patient Instructions: Antibiotic Form, Pain Management (DC), Pain Management (GEN), Joint Replacement Surgery (GEN), Total Hip Replacement (DC) Stand Alone Forms: General Discharge Information Follow-up/Referrals: Sameer York MD [Physician] - Discharge Medications: New oxycodone-acetaminophen 5-325 mg tablet 1 - 2 tablet PO Q4-6H MDD 8 tablets PRN (Reason: pain) Qty: 40 RF: 0 Continued atorvastatin 20 mg Tablet 20 mg DAILY RF: 0 Lantus U-100 Insulin 100 unit/mL Solution 44 unit SUBCUT DAILY RF: 0 meloxicam 15 mg Tablet 15 mg PO DAILY RF: 0 sertraline 100 mg Tablet 150 mg PO DAILY RF: 0 valsartan 80 mg Tablet 80 mg PO DAILY RF: 0 aspirin [Ecotrin Low Strength] 81 mg Tablet,Delayed Release (Dr/Ec) 81 mg PO DAILY RF: 0 pantoprazole 40 mg Tablet,Delayed Release (Dr/Ec) 40 mg PO QAM RF: 0 metoprolol tartrate 50 mg Tablet 50 mg PO BID RF: 0 gabapentin 300 mg Capsule 300 mg PO DAILY RF: 0 gabapentin 300 mg Capsule 600 mg PO HS RF: 0 levothyroxine 112 mcg Tablet 112 mcg PO DAILY RF: 0 empagliflozin 25 mg Tablet 25 mg PO DAILY RF: 0 Trulicity 0.75 mg/0.5 mL Pen Injector 0.75 mg SUBCUT WEEKLY RF: 0 cholecalciferol (vitamin D3) 2,000 unit Tablet,Chewable 2,000 unit PO DAILY RF: 0 diclofenac sodium [Voltaren] 1 % gel 4 gm TOPICAL QID Qty: 100 RF: 0 Discontinued hydrocodone-acetaminophen 5-325 mg tablet 1 - 2 tablet PO BID PRN (Reason: pain) Qty: 30 RF: 0 hydrocodone-acetaminophen 10-325 mg Tablet 1 tablet PO Q6H PRN (Reason: Pain) RF: 0 Date of admission: 03/04/20 14:37 Primary Care Provider: Ed,Rosanna Epps Admitting Provider: Sameer York Attending physician on admission: Sameer York Quality VTE Prophylaxis VTE prophylaxis: pharmacologic ordered
[2020-03-07 11:37] LABS: Glucose Point of Care 192 (65-105)
--- NOTE | 2020-05-05 15:46 | P.PNIM_ITS ---
Progress Note: A&P Assessment and Plan (1) Primary osteoarthritis of right hip: Code(s): M16.11 - Unilateral primary osteoarthritis, right hip Status: Acute Assessment and Plan: 03/06/20 13:43 Mike Monson is a 69 year old male With past medical history of diabetes for which patient is taking Lantus 44 units daily, metformin 500 mg q.day, and Trulicity once weekly, patient has history of hypertension which patient is taking valstran 80 mg q.day, metoprolol 50 mg b.i.d. and hyperlipidemia for which patient is taking Lipitor 20 mg q.day patient had been seen his orthopedic surgeon with severe osteoarthritis right hip conservative management failed and patient was taken to OR and had a right hip total arthroplasty, POD#3, today patient states the pain in the hip is better , he was able to ambulate with physical therapy, he denies any abdominal pain nausea or vomiting fever or chills, denies, chest pain palpitation or dizziness, patient will be seen by his surgeon may discharge him home today (2) Hypertension: Code(s): I10 - Essential (primary) hypertension Status: Acute Assessment and Plan: patient blood pressure is on soft sound most likely secondary pain medication and dehydration will continue to monitor, today patient blood pressure is trending up close to normal. (3) Diabetes: Code(s): E11.9 - Type 2 diabetes mellitus without complications Status: Acute Assessment and Plan: will resume patient's home medication and monitor low sliding scale Subjective Date/time seen: 03/07/2020 Mike Monson is a 69 year old male With past medical history of diabetes for which patient is taking Lantus 44 units daily, metformin 500 mg q.day, and Trulicity once weekly, patient has history of hypertension which patient is taking valstran 80 mg q.day, metoprolol 50 mg b.i.d. and hyperlipidemia for wh ich patient is taking Lipitor 20 mg q.day patient had been seen his orthopedic surgeon with severe osteoarthritis right hip conservative management failed and patient was taken to OR and had a right hip total arthroplasty, POD#3, today patient states the pain in the hip is better , he was able to ambulate with physical therapy, he denies any abdominal pain nausea or vomiting fever or chills, denies, chest pain palpitation or dizziness, patient will be seen by his surgeon may discharge him home today Review of Systems Review of Systems: All systems reviewed & are unremarkable except as noted in HPI and below Exam Const: General: comfortable and no acute distress HENMT: General nose exam: Normal nares present Mouth: Yes moist mucous membranes Eyes: General: appearance normal, both eyes and all related structures Sclera: sclerae normal Neck: Neck: supple Resp: Effort & Inspection: normal respiratory effort Auscultation: clear to auscultation bilaterally Cardio: Rate: regular rate Rhythm: regular rhythm GI: Auscultation: normal bowel sounds Skin: General skin exam: normal color Neuro: Speech: normal speech Sensory Exam: normal sensation Extrem: Other: bilateral lower extremity symmetric there is no internal or external rotation Psych: Affect: Anxious affect present Objective Data Meds/Results Radiology Results: ITS Impressions Hip X-Ray 03/04/20 13:06 IMPRESSION: Right bipolar hip replacement Quality VTE Prophylaxis VTE prophylaxis: pharmacologic ordered
== END 2020-03-07 12:30 | disposition home or self-care (01) | DRG 470 ==
LOC: ANH2MED 14:42
PROVIDERS: Admitting Provider Orthopaedic Surgery; PCP Internal Medicine; Visit Provider Orthopaedic Surgery
PROC: 0SR9039 Replacement of Right Hip Joint with Ceramic Synthetic Substitute, Cemented, Open Approach (ICD-10-PCS; CPT 27130; principal; 2020-03-04 10:00)
DX: M16.11 Unilateral primary osteoarthritis, right hip (principal); E11.9 Type 2 diabetes mellitus without complications; I10 Essential (primary) hypertension; E78.5 Hyperlipidemia, unspecified; E03.9 Hypothyroidism, unspecified; G47.33 Obstructive sleep apnea (adult) (pediatric); E66.9 Obesity, unspecified; Z68.30 Body mass index [BMI] 30.0-30.9, adult; I95.9 Hypotension, unspecified
CPT/HCPCS: 36415; 73502; 80048; 85014; 85018; 85025; 86850; 86900; 86901; 87635; 97110; 97116; 97161; 97165; 97530; 97535; A9270; C1713; C1776; C9803; J0131; J0171; J0690; J1100; J1170; J1815; J1885; J2270; J2370; J2405; J2704; J2710; J2795; J3010; J7120; U0003

== ENCOUNTER → 2021-09-14 10:17 | Outpatient (CLI) | payer MEDICARE, OTHER, SELFPAY ==
--- NOTE | ~2021-09-14 | US_ITS ---
EXAMINATION: US renal BI DATE: 09/14/2021 10:45 INDICATION: Left renal angiomyolipoma. TECHNIQUE: Multiple ultrasound grayscale images of the kidneys were obtained. COMPARISON: Chest CT 09/14/21 FINDINGS: The right kidney measures 10.6 x 4.6 x 4.6 cm. The left kidney measures 12.0 x 5.5 x 5.2 cm. The kidn eys demonstrate normal parenchymal echogenicity. There is a 12 mm hyperechoic mass in left kidney. Th ere is no hydronephrosis. The bladder is normal. IMPRESSION: 1. 12 mm hyperechoic mass in left kidney consistent with the history of angiomyolipoma. Reviewed, dictated and finalized at location A. SHIP IMPRESSION: 1. 12 mm hyperechoic mass in left kidney consistent with the history of angiom yolipoma.
--- NOTE | ~2021-09-14 | CT_ITS ---
EXAMINATION: CT diagnostic chest wo con DATE: 09/14/2021 10:35 INDICATION: History of chronic bronchitis, right lung mass TECHNIQUE: Computed tomography (CT) of the chest was performed without intravenous contrast. The dose -length product (DLP) was 555.72 mGy-cm. Automated exposure control and iterative reconstruction tech Sqoot[employer] were employed. COMPARISON: None FINDINGS: There is a 3.9 x 1.7 cm calcified pleural mass of the medial right lower lobe. A calcified nodule of the left lower lobe is consistent with old granulomatous disease. The lungs are free of acu te opacities. There is no pleural effusion or pneumothorax. No pathologically enlarged thoracic lymph nodes are identified. The heart size is normal. Calcified coronary artery atherosclerosis is noted. There is mild thoracic spondylosis. IMPRESSION: 1. Calcified pleural-based mass of the medial right lower lobe, likely old granulomatous disease. No acute cardiopulmonary abnormality. Reviewed, dictated and finalized at location B. F CRUISER IMPRESSION: 1. Calcified pleural-based mass of the medial right lower lobe, likely old gran ulomatous disease. No acute cardiopulmonary abnormality.
--- NOTE | ~2021-09-14 | XR_ITS ---
EXAMINATION: XR lumbar spine 2-3V DATE: 09/14/2021 11:46 INDICATION: Right buttock and hip pain TECHNIQUE: Anteroposterior and lateral views of the lumbar spine, and cone-down lateral view of the l umbosacral junction were obtained. COMPARISON: 04/24/2020 FINDINGS: There is no fracture, dislocation, or subluxation. The vertebral body heights are normal. T here is mild loss of intervertebral disc space height at L3-4 and L5-S1. Small degenerative osteophyt es project from the anterior endplates of multiple vertebral bodies. There is moderate facet osteoart hritis of the lower lumbar spine. Calcified atherosclerosis is noted. IMPRESSION: 1. Mild lumbar spondylosis without acute findings. Reviewed, dictated and finalized at location B. WORK ESTIMATOR
== END ==
PROVIDERS: Visit Provider Internal Medicine
DX: R91.8 Other nonspecific abnormal finding of lung field (principal); M47.816 Spondylosis without myelopathy or radiculopathy, lumbar region; N28.89 Other specified disorders of kidney and ureter
CPT/HCPCS: 71250; 72100; 76775

== ENCOUNTER 2022-03-20 16:44 | Emergency (ER) | payer MEDICARE, OTHER, SELFPAY ==
--- NOTE | ~2022-03-20 | XR_ITS ---
EXAMINATION: XR chest 2V Exam Date/Time: 03/20/2022 17:05 CDT HISTORY: COVID POSITIVE, HX COPD, COUGH X 7 DAYS Comparison: 03/29/2018. RESULT: Lines, tubes, and devices: Left humeral head soft tissue anchor. Lungs and pleura: Clear. Cardiomediastinal silhouette: Stable. Other: No acute osseous or upper abdominal finding. IMPRESSION: No acute cardiopulmonary process. Reviewed, dictated and finalized at location K.
[2022-03-20 16:50] VITALS: BP 117/67; PULSE 74; RESP 20; TEMP 36.8; O2SAT 97
--- NOTE | 2022-03-20 16:59 | ED.URI ---
HPI - URI/Sore Throat General Chief Complaint: Upper Respiratory Infection Stated Complaint: poss pnuemonia/positive COVID Time Seen by Provider: 03/20/22 16:59 History of Present Illness HPI Narrative: patient brought in by son for evaluation . patient states he tested positive for covid 19 and is now worried that he may have pneumonia. patient tested positive for covid 6 days ago. no shortness of breath and no chest pain. productive cough or green sputem. Related Data Home Medications Medication Instructions Recorded Confirmed aspirin 81 mg tablet,delayed 81 mg PO DAILY 10/16/19 03/04/20 release (Ecotrin Low Strength) atorvastatin 20 mg tablet 20 mg DAILY 10/16/19 03/04/20 cholecalciferol (vitamin D3) 50 2,000 unit PO DAILY 10/16/19 03/04/20 mcg (2,000 unit) chewable tablet dulaglutide 0.75 mg/0.5 mL 0.75 mg subcut WEEKLY 10/16/19 03/04/20 subcutaneous pen injector (Trulicity) empagliflozin 25 mg tablet 25 mg PO DAILY 10/16/19 01/31/20 insulin glargine 100 unit/mL 44 unit subcut DAILY 10/16/19 03/04/20 subcutaneous solution (Lantus U-100 Insulin) levothyroxine 112 mcg tablet 112 mcg PO DAILY 10/16/19 03/04/20 metoprolol tartrate 50 mg tablet 50 mg PO BID 10/16/19 03/04/20 pantoprazole 40 mg tablet,delayed 40 mg PO QAM 10/16/19 03/04/20 release sertraline 100 mg tablet 150 mg PO DAILY 10/16/19 03/04/20 valsartan 80 mg tablet 80 mg PO DAILY 10/16/19 03/04/20 Allergies Allergy/AdvReac Type Severity Reaction Status Date / Time Penicillins Allergy Unknown Rash Verified 03/20/22 16:47 Sulfa (Sulfonamide Allergy Unknown Rash Verified 03/20/22 16:47 Antibiotics) Review of Systems Review of Systems: CONSTITUTIONAL: Denies fever, chills, or sweats. EYES: Denies visual changes, redness, or discharge. ENT: Denies rhinorrhea, congestion, sore throat, or otalgia. CARDIOVASCULAR: Denies chest pain, palpitations, or edema. RESPIRATORY: Denies cough or dyspnea. GASTROINTESTINAL: Denies abdominal pain, nausea, vomiting, or diarrhea. GENITOURINARY: Denies dysuria or hematuria. SKIN: Denies rash or itching. MUSCULOSKELETAL: Denies back pain, joint pain, or myalgia. NEUROLOGIC: Denies headache, numbness, or weakness. PSYCHIATRIC: Denies anxiety or depression. [facility] Past Medical History Medical History (Updated 03/20/22 @ 17:05 by VIRY López) Arthritis Back pain Diabetes Gastroesophageal reflux disease High cholesterol Hypertension Hypothyroidism Incomplete tear of right rotator cuff Obesity DELMER (obstructive sleep apnea) Primary osteoarthritis of right hip Primary osteoarthritis of right knee Surgical History Surgical History (Updated 03/05/20 @ 16:46 by Sameer York MD) History of hammertoe correction History of repair of rotator cuff History of right knee surgery Status post total hip replacement, right Family History Family History Mother Family history of arthritis Sibling Family history of malignant neoplasm Social History Social History Smoking packs per day: 3 Smoking cigarettes per day: 60.0 Years smoked: 25 Smoking pack-years: 75.00 Smoking status: Former smoker Tobacco type: cigarettes Alcohol intake: former Substance use: never Gender identity (if verbalized by the patient): Male Spiritual care concerns: No Comments At time of signature, agree with nursing past medical, surgical, social and family history. There is no relevant family history pertinent to the presenting complaint Exam Narrative: GENERAL: Well-appearing, well-nourished, and in no acute distress. HEAD: Normocephalic, atraumatic. EYES: PERRLA and EOMI. ENT: Nares clear, no rhinorrhea or epistaxis. Mucous membranes moist. NECK: Supple. CHEST: resp even and non labored rhonchi in lefy lower base HEART: Regular rate and rhythm. No murmur heard. Normal peripher
== END 2022-03-20 17:54 | disposition home or self-care (01) ==
PROVIDERS: Emergency Provider Nurse Practitioner Family; PCP Internal Medicine
DX: U07.1 COVID-19 (principal); Z87.891 Personal history of nicotine dependence; E11.9 Type 2 diabetes mellitus without complications; K21.9 Gastro-esophageal reflux disease without esophagitis; E78.00 Pure hypercholesterolemia, unspecified; I10 Essential (primary) hypertension; E03.9 Hypothyroidism, unspecified; G47.33 Obstructive sleep apnea (adult) (pediatric); M16.0 Bilateral primary osteoarthritis of hip; Z96.641 Presence of right artificial hip joint; Z79.82 Long term (current) use of aspirin
CPT/HCPCS: 71046; 99213; G0463

== ENCOUNTER 2022-03-30 13:09 | Outpatient (CLI) | payer MEDICARE, OTHER, SELFPAY ==
[2022-03-30 13:40] LABS: Alanine Aminotransferase 28 U/L (6-50); Alkaline Phosphatase 124 U/L (38-126); Anion Gap 12 mmol/L (8-16); Aspartate Amino Transferase 28 U/L (17-59); Bilirubin,Total 1.8 mg/dL (0.2-1.3); Blood Urea Nitrogen 10 mg/dL (9-20); Calcium 9.2 mg/dL (8.4-10.2); Carbon Dioxide 23 mmol/L (22-30); Chloride 96 mmol/L (98-107); Estimated Glomerular Filt Rate > 60; Glucose 375 mg/dL (65-110); Potassium 3.7 mmol/L (3.4-5.0); Sodium 131 mmol/L (137-145)
== END 2022-03-30 13:10 | disposition home or self-care (01) ==
LOC: ANHLAB 13:12
PROVIDERS: PCP Internal Medicine; Visit Provider Internal Medicine
DX: E11.9 Type 2 diabetes mellitus without complications (principal)
CPT/HCPCS: 36415; 80053

== ENCOUNTER 2022-04-26 14:19 | Outpatient (CLI) | payer MEDICARE, OTHER, SELFPAY ==
[2022-04-26 14:59] LABS: Basophils Absolute Auto 0.1 K/mm3 (0.0-0.1); Eosinophils Absolute Auto 0.3 K/mm3 (0-0.3); Eosinophils Percent Auto 6.2 % (0-4.4); Hematocrit 44.8 % (42.0-52.0); Hemoglobin 15.7 g/dL (14.0-18.0); Immature Granulocyte Absolute 0.05 K/mm3 (0.00-0.031); Lymphocytes Absolute Auto 1.61 K/mm3 (0.9-3.2); Lymphocytes Percent Auto 31.1 % (18.3-44.2); Mean Corpuscular Hemoglobin 33.1 pg (26-34); Mean Corpuscular Volume 94.5 fl (80-100); Mean Platelet Volume 9.7 fl (7.4-10.4); Monocytes Absolute Auto 0.5 K/mm3 (0.1-0.6); Monocytes Percent Auto 9.3 % (2.6-8.5); Neutrophils Absolute Auto 2.7 K/mm3 (1.3-6.7); Neutrophils Percent Auto 51.4 % (45.5-73.1); Platelet Count Result 162 k/mm3 (150-375); Red Blood Count 4.74 M/mm3 (4.6-6.20); Red Cell Distribution Width 12.9 % (11.5-14.5); White Blood Count 5.2 K/mm3 (4.5-10.0)
[2022-04-26 15:10] LABS: Alanine Aminotransferase 22 U/L (6-50); Albumin Level 4.1 g/dL (3.5-5.1); Alkaline Phosphatase 119 U/L (38-126); Anion Gap 11 mmol/L (8-16); Aspartate Amino Transferase 22 U/L (17-59); Bilirubin,Total 0.9 mg/dL (0.2-1.3); Blood Urea Nitrogen 18 mg/dL (9-20); Calcium 9.2 mg/dL (8.4-10.2); Carbon Dioxide 23 mmol/L (22-30); Chloride 101 mmol/L (98-107); Estimated Glomerular Filt Rate > 60; Glucose 194 mg/dL (65-110); Magnesium 1.9 mg/dL (1.6-2.3); Potassium 4.1 mmol/L (3.4-5.0); Sodium 135 mmol/L (137-145)
== END 2022-04-26 14:20 | disposition home or self-care (01) ==
PROVIDERS: PCP Internal Medicine; Visit Provider Internal Medicine
DX: I49.49 Other premature depolarization (principal)
CPT/HCPCS: 36415; 80053; 83735; 85025

== ENCOUNTER 2022-07-01 13:54 | Outpatient (CLI) | payer MEDICARE, OTHER, SELFPAY ==
[2022-07-01 14:24] LABS: Anion Gap 7 mmol/L (8-16); Blood Urea Nitrogen 25 mg/dL (9-20); Calcium 9.3 mg/dL (8.4-10.2); Carbon Dioxide 30 mmol/L (22-30); Chloride 99 mmol/L (98-107); Estimated Glomerular Filt Rate > 60; Glucose 141 mg/dL (65-110); Potassium 4.8 mmol/L (3.4-5.0); Sodium 136 mmol/L (137-145)
[2022-07-01 14:28] LABS: Hemoglobin A1C 7.7 % (<5.7)
== END 2022-07-01 13:55 | disposition home or self-care (01) ==
PROVIDERS: PCP Internal Medicine; Visit Provider Internal Medicine
DX: E11.9 Type 2 diabetes mellitus without complications (principal); I49.1 Atrial premature depolarization
CPT/HCPCS: 36415; 80048; 83036; 84443

== ENCOUNTER 2022-08-02 17:29 | Outpatient (CLI) | payer MEDICARE, OTHER, SELFPAY ==
[2022-08-02 18:18] LABS: Basophils Absolute Auto 0.1 K/mm3 (0.0-0.1); Basophils Percent Auto 0.9 % (0.2-1.2); Eosinophils Absolute Auto 0.2 K/mm3 (0-0.3); Eosinophils Percent Auto 3.3 % (0-4.4); Hematocrit 44.7 % (42.0-52.0); Hemoglobin 15.7 g/dL (14.0-18.0); Immature Granulocyte Absolute 0.05 K/mm3 (0.00-0.031); Immature Granulocyte Percent A 0.9 % (0-0.5); Lymphocytes Absolute Auto 2.17 K/mm3 (0.9-3.2); Lymphocytes Percent Auto 38.2 % (18.3-44.2); Mean Corpuscular HGB Conc 35.1 g/dl (32-36); Mean Corpuscular Hemoglobin 32.6 pg (26-34); Mean Corpuscular Volume 92.7 fl (80-100); Mean Platelet Volume 9.9 fl (7.4-10.4); Monocytes Absolute Auto 0.6 K/mm3 (0.1-0.6); Monocytes Percent Auto 9.9 % (2.6-8.5); Neutrophils Absolute Auto 2.7 K/mm3 (1.3-6.7); Neutrophils Percent Auto 46.8 % (45.5-73.1); Platelet Count Result 158 k/mm3 (150-375); Red Blood Count 4.82 M/mm3 (4.6-6.20); Red Cell Distribution Width 12.4 % (11.5-14.5); White Blood Count 5.7 K/mm3 (4.5-10.0)
[2022-08-02 18:26] LABS: INR 1.1; Partial Thromboplastin Time 31.1 SECONDS (22.3-36.8); Prothrombin Time 13.5 Seconds (11.1-14.7)
== END 2022-08-02 17:30 | disposition home or self-care (01) ==
PROVIDERS: PCP Internal Medicine; Visit Provider Internal Medicine
DX: D69.9 Hemorrhagic condition, unspecified (principal)
CPT/HCPCS: 36415; 85025; 85610; 85730

== ENCOUNTER 2022-10-18 11:46 | Outpatient (CLI) | payer MEDICARE, OTHER, SELFPAY ==
--- NOTE | 2022-10-18 13:22 | ECG_ITS ---
Measurements Intervals Weed Rate: 71 P: 16 MI: 189 QRS: 13 QRSD: 81 T: -16 QT: 361 QTc: 392 Interpretive Statements SINUS RHYTHM LOW QRS VOLTAGE IN PRECORDIAL LEADS NONSPECIFIC T-WAVE ABNORMALITY- INFERIOR LEADS BASELINE ARTIFACT- I, II, III, AVR, AVL BORDERLINE ECG COMPARED TO ECG 01/02/2020 11:34:04 SINUS RHYTHM NOW PRESENT Electronically Signed On 10-18-2022 13:41:34 HOSE BUILDER by Curt Reveles D.O.
[2022-10-18 14:39] LABS: Basophils Percent Auto 0.7 % (0.2-1.2); Eosinophils Absolute Auto 0.2 K/mm3 (0-0.3); Eosinophils Percent Auto 4.1 % (0-4.4); Hematocrit 46.2 % (42.0-52.0); Hemoglobin 16.2 g/dL (14.0-18.0); Immature Granulocyte Absolute 0.04 K/mm3 (0.00-0.031); Immature Granulocyte Percent A 0.7 % (0-0.5); Lymphocytes Absolute Auto 2.12 K/mm3 (0.9-3.2); Lymphocytes Percent Auto 36.4 % (18.3-44.2); Mean Corpuscular HGB Conc 35.1 g/dl (32-36); Mean Corpuscular Hemoglobin 33.1 pg (26-34); Mean Corpuscular Volume 94.3 fl (80-100); Mean Platelet Volume 9.8 fl (7.4-10.4); Monocytes Absolute Auto 0.5 K/mm3 (0.1-0.6); Monocytes Percent Auto 8.6 % (2.6-8.5); Neutrophils Absolute Auto 2.9 K/mm3 (1.3-6.7); Neutrophils Percent Auto 49.5 % (45.5-73.1); Platelet Count Result 160 k/mm3 (150-375); Red Cell Distribution Width 12.2 % (11.5-14.5); White Blood Count 5.8 K/mm3 (4.5-10.0)
[2022-10-18 14:51] LABS: Anion Gap 8 mmol/L (8-16); Blood Urea Nitrogen 24 mg/dL (9-20); Calcium 9.3 mg/dL (8.4-10.2); Carbon Dioxide 29 mmol/L (22-30); Chloride 100 mmol/L (98-107); Estimated Glomerular Filt Rate 54; Glucose 178 mg/dL (65-110); Potassium 4.6 mmol/L (3.4-5.0); Sodium 137 mmol/L (137-145)
[2022-10-18 14:57] LABS: Albumin Level 4.2 g/dL (3.5-5.1)
[2022-10-18 16:51] LABS: Hemoglobin A1C 7.1 % (<5.7)
[2022-10-18 19:21] LABS: Urine Cotinine NEGATIVE
== END 2022-10-18 11:47 | disposition home or self-care (01) ==
LOC: ANHSURGERY 11:51
PROVIDERS: Anesthesiology; PCP Internal Medicine; Visit Provider Orthopaedic Surgery
DX: Z01.812 Encounter for preprocedural laboratory examination (principal); Z01.810 Encounter for preprocedural cardiovascular examination; M17.11 Unilateral primary osteoarthritis, right knee; I10 Essential (primary) hypertension; Z79.899 Other long term (current) drug therapy; E11.9 Type 2 diabetes mellitus without complications
CPT/HCPCS: 36415; 80048; 80307; 82040; 83036; 85025; 87081; 93005

== ENCOUNTER 2022-10-20 11:55 | Outpatient (CLI) | payer MEDICARE, OTHER, SELFPAY ==
--- NOTE | ~2022-10-20 | XR_ITS ---
XR_CERV2-3V_CR DATE: 10/20/2022 12:21 INDICATION: Neck pain TECHNIQUE: AP, open-mouth, lateral views COMPARISON: None FINDINGS: Normal alignment of the cervical spine. C1 and C2 are normally aligned and the odontoid pro cess is intact. No fracture or dislocation, locked facet or prevertebral soft tissue swelling is evid ent. There is anterior spurring at C5-6. There is moderate degenerative disc disease at C6-7. IMPRESSION: Mild cervical spondylosis Reviewed, dictated and finalized at Location A. Reviewed, dictated and finalized at location B. KLER IMPRESSION: Mild cervical spondylosis
== END 2022-10-20 11:56 | disposition home or self-care (01) ==
PROVIDERS: PCP Internal Medicine; Visit Provider Internal Medicine
DX: M47.812 Spondylosis without myelopathy or radiculopathy, cervical region (principal)
CPT/HCPCS: 72040

== ENCOUNTER 2022-11-15 00:13 | Day surgery (SDC) | payer MEDICARE, OTHER, SELFPAY ==
[2022-10-18 12:28] VITALS: BP 113/72; PULSE 77; RESP 16; TEMP 36.2; O2SAT 97; BMI 31.0
--- NOTE | 2022-10-18 12:47 | PC.NURSE ---
Addendum entered by Lauren Sadler RN 10/18/22 12:56: TAKE 1/2 DOSE OF MORNING INSULIN ON THE DAY OF SURGERY- 6.5 UNITS. Original Note: Report to the Outpatient Waiting Room, entrance under the green pavilion located off [facility], at time __10:00AM on date __11/15/22 . Planned Procedure Time: _12:00PM . Time changes happen often and if your time is changed the preop area will call you the afternoon before. - You and your visitor will be asked to self-screen and do not enter if you have any COVID symptoms. - Only one visitor is requested with a max of two and NO children visitors are allowed at this time. - The patient visitor may be requested to leave or wait in car when not with patient due to distancing restrictions. - A mask is optional within the hospital at this time. Patients may have clear liquids (water, carbonated beverages, clear teas, apple juice) until 3 hours prior to surgery with a maximum of 20 ounces. - No food from midnight until time of surgery Take the following medications with a SIP of water the morning of surgery: ____ALBUTEROL INHALER NEEDED, NASAL INHALER NEEDED, HYDROCODONE NEEDED, LEVOTHYROXINE, METOPROLOL DO NOT STOP ANY OF YOUR OTHER PRESCRIPTION MEDICATIONS PRIOR TO SURGERY ?EXCEPT THE FOLLOWING Medications to discontinue per physician ____HOLD ASPIRIN 7 DAYS PRE-OP- LAST DOSE 11/08/22, HOLD VITAMINS/SUPPLEMENTS 3 DAYS PRE-OP- LAST DOSE 11/11/22 Please no make-up, nail sami, hairspray, perfume, deodorant, or body powder the day of surgery. No jewelry (including any body piercings) or valuables the day of surgery, leave them at home. Please take a shower or bath the night before, or the morning of, surgery with an antibacterial soap. Wear comfortable, loose fitting clothing. Children are encouraged to wear pajamas. - Jewelry must be removed prior to entering the operating room. Rings and piercings that are not removed may be cut off. - The hospital will not accept responsibility for valuables. - Please leave all valuables, including medications, at home the day of surgery. If you are going home after surgery, a licensed bus driver supervisor must drive you home. - NO public transportation without another adult if you receive anesthesia. - We recommend that an adult stay with you for 24 hours following discharge. - We also recommend that you do not drive, make important decision, drink alcoholic beverages, or take any drugs that were not prescribed by your health care provider for at least 24 hours after your discharge time. Follow any additional instructions given to you from your surgeon. If you or anyone in your household have experienced Covid symptoms in the past week, please notify your surgeon or the nurse liaison at the phone number below for possible testing. Telephone instructions given to __PATIENT and asked if any additional questions and then verbalized understanding. Patient advised to call surgeon office or pre surgery nurse liaison [phone] if any additional questions.
[2022-11-15] VITALS (16 sets, daily range): BP systolic 94–132; BP diastolic 56–83; PULSE 60–79; RESP 12–18; TEMP 36.1–36.9; O2SAT 94–98
--- NOTE | ~2022-11-15 | XR_ITS ---
EXAMINATION: [id number] DATE: 11/15/2022 14:58 INDICATION: Total right knee arthroplasty. Postop. TECHNIQUE: 2 views of right knee were obtained. COMPARISON: None. FINDINGS: There is a total right knee arthroplasty with patellar resurfacing in near-anatomic alignme nt. There is gas in the knee joint and soft tissues, consistent with recent surgery. IMPRESSION: 1. Total right knee arthroplasty in near-anatomic alignment. Reviewed, dictated and finalized at location A.
[2022-11-15 10:10] LABS: Glucose Point of Care 161 mg/dl (65-105)
--- NOTE | 2022-11-15 10:32 | WPDHPUPDATE1 ---
History and Physical Update Update Date/Time: 11/15/22 10:32 History and Physical has been reviewed, including an updated exam of the patient. There are NO changes in the patient's condition. Risks, benefits, and alternatives have been discussed and questions answered. Patient agrees to proceed with procedure.
[2022-11-15] MEDS: ACETAMINOPHEN 500 MG TABLET 1000 MG PO (10:40)
[2022-11-15] MEDS: LACTATED RINGERS 1,000 ML 30 ML IV CONT ×2 (11:00→14:43)
[2022-11-15] MEDS: TRANEXAMIC ACID 1,000MG/ISO100 1,000 MG/100 ML BAG 200 MG IVPB (11:30)
[2022-11-15] MEDS: ceFAZolin 2 GM/D5W 50 ML 2 GM/50 ML BAG IVPB ×2 (12:15→20:17)
--- NOTE | 2022-11-15 12:31 | WPDANESEPPF ---
Anes - Initial Pre Proc Eval Procedure: Operation Date: 11/15/22 12:00 Proposed Procedures p Right Total Knee Arthroplasty - Sameer York MD Date/Time: 11/15/22 12:31 Surgeon: Sameer York MD Pre Op Diagnosis: primary OA right knee Patient Data Age: 72 Gender: M Height: 1.79 m Weight: 97 kg Last Vital Signs Temp 36.6 C 11/15/22 10:31 Pulse 75 11/15/22 10:31 Resp 14 11/15/22 10:31 BP 118/80 11/15/22 10:31 Pulse Ox 97 11/15/22 10:31 O2 Del Method Room Air 11/15/22 10:31 Allergies Allergy/AdvReac Type Severity Reaction Status Date / Time Penicillins Allergy Unknown Rash Verified 11/15/22 11:22 Sulfa (Sulfonamide Allergy Unknown Rash Verified 11/15/22 11:22 Antibiotics) Home Medications Medication Instructions Recorded Confirmed Type aspirin 81 mg tablet,delayed 81 mg PO DAILY 10/16/19 10/18/22 History release (Ecotrin Low Strength) cholecalciferol (vitamin D3) 50 4,000 unit PO DAILY 10/16/19 10/18/22 History mcg (2,000 unit) chewable tablet empagliflozin 25 mg tablet 25 mg PO DAILY 10/16/19 10/18/22 History insulin glargine 100 unit/mL 25 unit subcut HS 10/16/19 10/18/22 History subcutaneous solution (Lantus U-100 Insulin) levothyroxine 112 mcg tablet 112 mcg PO DAILY 10/16/19 11/15/22 History pantoprazole 40 mg tablet,delayed 40 mg PO QAM 10/16/19 11/15/22 History release acetaminophen 650 mg 1,300 mg PO Q12H PRN Pain 10/18/22 10/18/22 History tablet,extended release albuterol sulfate 90 mcg/actuation 2 inh inhalation Q6-12H PRN Dyspnea 10/18/22 10/18/22 History aerosol inhaler atorvastatin 40 mg tablet 40 mg PO DAILY 10/18/22 10/18/22 History hydrocodone 10 mg-acetaminophen 1 tablet PO Q6-8H PRN Pain 10/18/22 10/18/22 History 325 mg tablet insulin aspart U-100 100 unit/mL 13 unit subcut BID 10/18/22 10/18/22 History (3 mL) subcutaneous pen (Novolog FlexPen U-100 Insulin aspart) ipratropium bromide 21 mcg (0.03 1 spray intranasal DAILY PRN 10/18/22 10/18/22 History %) nasal spray Congestion metoprolol tartrate 100 mg tablet 50 mg PO BID 10/18/22 11/15/22 History semaglutide 1 mg/dose (2 mg/1.5 1 mg subcut WEEKLY 10/18/22 10/18/22 History mL) subcutaneous pen injector (Ozempic) tamsulosin 0.4 mg capsule 0.4 mg PO DAILY 10/18/22 10/18/22 History valsartan 160 mg tablet 160 mg PO QAM 10/18/22 10/18/22 History Laboratory Tests 11/15/22 11/15/22 10:07 10:07 POC Capillary Glucose 161 mg/dl H mg/dl (65-105) Blood Type O Positive Antibody Screen Negative Patient hx anesthesia problems: none Family hx anesthesia problems: none Results Review: All pre-operative results and documents have been reviewed as part of the pre-operative evaluation. [facility] Past Medical History Medical History Arthritis Back pain Diabetes Gastroesophageal reflux disease High cholesterol Hypertension Hypothyroidism Incomplete tear of right rotator cuff Obesity DELMER (obstructive sleep apnea) Primary osteoarthritis of right hip Primary osteoarthritis of right knee Surgical History Surgical History History of hammertoe correction History of repair of rotator cuff History of right knee surgery Status post total hip replacement, right Family History Family History Mother Family history of arthritis Sibling Family history of malignant neoplasm Social History Social History Smoking packs per day: 1 Smoking cigarettes per day: 20.0 Years smoked: 10 Smoking pack-years: 10.00 Smoking status: Former smoker Tobacco type: cigarettes and cigars Smokeless tobacco user: chewing tobacco Smoking end date: 02/12/78 Additional smoking assessment comments: QUIT CIGA
[2022-11-15] MEDS: GENTAMICIN BONE CEMENT REFOBACIN 1 EACH TOPICAL (13:47)
--- NOTE | 2022-11-15 14:40 | W.PM.PROC2 ---
Procedure Note - Detailed Date of Procedure 11/15/22 Pre-op Diagnosis primary OA right knee Post-op Diagnosis Same Procedure Performed Total knee arthroplasty, right. Surgeon Sameer York MD Title Investigator Dorcas Frost PA-C Anesthesia General and Regional (subsartorial block) Findings Satisfactory bone quality. Significant contracture of at least 15-20 degrees. Scar tissue from open medial meniscectomy countered. Moderate medial release required including of the semitendinosis. PCL tissue remained good. 10 mm distal femoral resection required. Significant bleeding from the posterior capsule at the conclusion of the procedure. Polyethylene was removed and this was coagulated with the Aqua Mantis. Bleeding stopped very nicely. Description of Procedure The patient was brought to the operating room. A general anesthetic was administered. The leg was prepped and draped in the usual sterile fashion. The limb was elevated and the tourniquet inflated to 300 mmHg. A longitudinal incision was created along the medial border of the patella and patellar tendon, and a trivector approach to the knee was performed. A moderate medial release was taken. The knee was then flexed. The osteophytes were carefully removed. The intramedullary guide was placed in the femoral canal. The distal femoral resection was then taken with the oscillating saw. The collateral ligaments were carefully protected. The tibia was carefully exposed. The jig was applied, and the proximal tibia was resected according to preoperative plan. The knee was balanced in extension. Appropriate releases were taken where needed. The anterior cruciate ligament and meniscal remnants were removed. The posterior cruciate ligament was preserved. The patella was measured. Patellar resection was carried out with the oscillating saw. The lug holes drilled. The femur was sized and rotation assessed using a combination of gap balancing, posterior referencing, and the AP axis. The 4 in 1 cutting block was used to finish the femoral cuts after equal gaps were assured. The osteophytes were carefully removed from the back of the knee. The knee was copiously irrigated with antibiotic solution periodically throughout the procedure. The meniscal remnants were removed. The spacer block was used to confirm equal flexion and extension gaps. No further releases were needed. The tibia was sized and broached. The bony surfaces were prepared for cementing with pulsatile lavage. The real tibia was cemented into position. The femur was press-fit. The patella was cemented. Excess cement was carefully removed. Patellar tracking was carefully assessed. Dilute sterile Betadine soak performed for three minutes. Copious irrigation then performed. The wound was closed with #1 Vicryl suture, #2, 2-0, and 3-0 barbed suture, followed by Steri-Strips. A sterile bulky dressing was applied. Meticulous hemostasis was maintained throughout the procedure, and the bipolar cautery device was used. The pain relieving mixture was injected into the periarticular tissues during the procedure. There were no complications. The patient was extubated and brought to the recovery room in stable condition after the application of sterile dressing with Otoniel bandage. Implants Owned it Triathlon knee system, low profile cemented tibia size 6, press-fit cruciate retaining femoral component size 6 ,and an 9 mm cruciate retaining X3 polyethylene insert. 35mm asymmetric all polyethylene patella component. Estimated Blood Loss 200 Drains No Pathology None sent Complications No immediate complications Condition Stable Disposition PACU [facility] Billing Surgery - Charge Forward: Surgery Billing
[2022-11-15 14:52] LABS: Glucose Point of Care 203 mg/dl (65-105)
[2022-11-15] MEDS: fentaNYL CITRATE INJ (*CRX) 100 MCG/2 ML VIAL 25 MCG IV PUSH ×2 (14:57→15:03)
--- NOTE | 2022-11-15 15:12 | WPDANESPNB ---
Anes - Peripheral Nerve Block Date/Time: 11/15/22 15:12 I have discussed with the patient/family/POA the placement of a peripheral nerve block for post-operative pain management, including associated risks, benefits, complications, and side effects. Alternative methods of post-operative analgesia were detailed. Questions were solicited and answers provided to the satisfaction of the patient/family/POA. Time-Out: A pre-procedural Time-Out was completed immediately before starting the procedure and confirmed: Patient Identification, Site, Procedure, Patient Position and the Availability of Requisite Equipment. Clinical Indications: Acute post-operative pain management requested by the operative surgeon. Nerve Block Insertion Note Anes-nerve block: adductor canal right Patient position: supine Skin prep: chlorhexidine Needle: 22 gauge, stimulating, insulated echogenic needle. Needle length: 80 mm Technique: ultrasound Technique comment: done in PACU Injectate: bupivacaine 0.5% with epi 5 mcg/ml (30ml) Observations: tolerated well Complications: none Procedure start time:: 1503 Procedure end time:: 1510
--- NOTE | 2022-11-15 16:31 | ADMGEN ---
This patient, Mike Monson, was admitted to Medical Room 251-01. Patient/family oriented to hospital policies and general routines including ID bracelet, bed and alarms, visiting hours, pain management, procedures, bathroom and other care routines, personal items, smoking policy, room service/diet, and visiting hours. Information on how to activate the Rapid Response Team has been discussed. Patient/Family are encouraged to report perceived risks to care and to ask questions if they do not understand what they are told or what they should do.
[2022-11-15] MEDS: oxyCODONE HCL (*CRX) 5 MG TAB IR 10 MG PO ×3 (16:37→23:47)
[2022-11-15 17:20] LABS: Glucose Point of Care 197 mg/dl (65-105)
[2022-11-15] MEDS: ASPIRIN 81 MG ENTERIC TABLET PO (17:21)
[2022-11-15] MEDS: INSULIN ASPART (*BKC) 100 UNITS/ML 13 UNITS SUB-Q (17:21)
[2022-11-15] MEDS: MELOXICAM 7.5 MG TABLET PO (17:21)
[2022-11-15 20:08] LABS: Glucose Point of Care 221 mg/dl (65-105)
[2022-11-15] MEDS: INSULIN GLARGINE (*BKC) 100 UNITS/ML 25 UNITS SUB-Q (20:16)
[2022-11-16 01:41] VITALS: BP 101/65; PULSE 67; RESP 17; TEMP 36.5; O2SAT 94
[2022-11-16] MEDS: ceFAZolin 2 GM/D5W 50 ML 2 GM/50 ML BAG IVPB ×2 (04:04→11:10)
[2022-11-16] MEDS: oxyCODONE HCL (*CRX) 5 MG TAB IR 10 MG PO ×2 (04:05→08:22)
[2022-11-16] MEDS: LEVOTHYROXINE SODIUM 112 MCG TABLET PO (05:34)
[2022-11-16 05:47] VITALS: BP 104/59; PULSE 70; RESP 18; TEMP 36.9; O2SAT 95
[2022-11-16 06:16] LABS: Basophils Percent Auto 0.2 % (0.2-1.2); Hematocrit 36.1 % (42.0-52.0); Hemoglobin 12.6 g/dL (14.0-18.0); Immature Granulocyte Absolute 0.08 K/mm3 (0.00-0.031); Immature Granulocyte Percent A 0.7 % (0-0.5); Lymphocytes Absolute Auto 1.18 K/mm3 (0.9-3.2); Mean Corpuscular HGB Conc 34.9 g/dl (32-36); Mean Corpuscular Hemoglobin 32.7 pg (26-34); Mean Corpuscular Volume 93.8 fl (80-100); Mean Platelet Volume 9.8 fl (7.4-10.4); Monocytes Percent Auto 8.7 % (2.6-8.5); Neutrophils Absolute Auto 9.5 K/mm3 (1.3-6.7); Neutrophils Percent Auto 80.4 % (45.5-73.1); Platelet Count Result 138 k/mm3 (150-375); Red Blood Count 3.85 M/mm3 (4.6-6.20); Red Cell Distribution Width 12.2 % (11.5-14.5); White Blood Count 11.8 K/mm3 (4.5-10.0)
[2022-11-16 06:28] LABS: Anion Gap 6 mmol/L (8-16); Blood Urea Nitrogen 28 mg/dL (9-20); Calcium 8.1 mg/dL (8.4-10.2); Carbon Dioxide 26 mmol/L (22-30); Chloride 100 mmol/L (98-107); Estimated CRCL calculation 53 ml/min; Estimated Glomerular Filt Rate 54; Glucose 163 mg/dL (65-110); Potassium 4.8 mmol/L (3.4-5.0); Sodium 132 mmol/L (137-145)
[2022-11-16 07:00] VITALS: PULSE 70; RESP 18; O2SAT 95
[2022-11-16 08:41] LABS: Glucose Point of Care 177 mg/dl (65-105)
[2022-11-16] MEDS: INSULIN ASPART (*BKC) 100 UNITS/ML 13 UNITS SUB-Q (08:50)
[2022-11-16] MEDS: SENNA/DOCUSATE SODIUM TABLET 2 TAB PO (08:52)
[2022-11-16] MEDS: EMPAGLIFLOZIN 25 MG TABLET PO (08:52)
[2022-11-16] MEDS: ASPIRIN 81 MG ENTERIC TABLET PO (08:52)
[2022-11-16] MEDS: ATORVASTATIN 40 MG TABLET PO (08:52)
[2022-11-16] MEDS: polyethylene glycoL 3350 17 GM POWD.PACK PO (08:53)
[2022-11-16] MEDS: MELOXICAM 7.5 MG TABLET PO (08:53)
[2022-11-16] MEDS: PANTOPRAZOLE 40 MG TABLET PO (08:53)
[2022-11-16] MEDS: TAMSULOSIN HCL 0.4 MG CAPSULE PO (08:53)
[2022-11-16 08:59] VITALS: PULSE 85
[2022-11-16] MEDS: METOPROLOL TARTRATE 50 MG TAB PO (08:59)
[2022-11-16] MEDS: VALSARTAN 160 MG TABLET PO (08:59)
[2022-11-16 10:25] VITALS: BP 110/70; PULSE 80; RESP 20; TEMP 36.6; O2SAT 92
[2022-11-16 12:07] LABS: Glucose Point of Care 130 mg/dl (65-105)
--- NOTE | 2022-11-16 12:45 | PM.DS ---
DS: Admitting Diagnosis Discharge Date 11/16/22 Admitting Diagnosis OA knee Right DS: Discharge Diagnosis Discharge Diagnosis (1) Status post total right knee replacement: Code(s): Z96.651 - Presence of right artificial knee joint Status: Acute Assessment and Plan: Postop day 1: Right total knee arthroplasty. Patient tolerated procedure well. No complications. Pain manageable with pain medication. No numbness or tingling. We had a lengthy discussion regarding postoperative wound care, limitations, expectations, and exercises. Patient shows good understanding. He has had initial physical therapy and is tolerating it well. DVT prophylaxis: 81 mg baby aspirin b.i.d. for 14 days. Pain medication: Percocet. Meloxicam. Antibiotic: Keflex Patient has followup appointment with Dr. York in 3 weeks. DS: Summary Hospital Course Reason for hospitalization: Total knee arthroplasty Hospital Course: Patient tolerated procedure well. Has had initial PT/OT. No complications. Pain well managed. Status at Discharge Functional status at discharge: uses cane/walker Overall status at discharge: patient is progressing back to baseline Time Spent with Patient Time attestation: Total time spent providing and/or coordinating discharge services: Exam Narrative: Overweight 72 y/o Male. Resting comfortably in bed. No acute distress. A&O x3. Wearing compression socks bilaterally. Dressing intact with no drainage. Moderate swelling. Small area of ecchymosis. No erythema. No hematoma. Good early range of motion. Calf nontender. Neurologic status intact. No varicosities. Distal pulses palpable. DS: Data Data Completed and Pending Labs on day of discharge: Labs from last 24 hours 11/16/22 11/16/22 11/16/22 11:57 08:38 06:00 WBC RBC Hgb Hct MCV MCH MCHC RDW Plt Count MPV Immature Gran % (Auto) Neut % (Auto) Lymph % (Auto) [place] % (Auto) Eos % (Auto) Baso % (Auto) Lymph # (Auto) [place] # (Auto) Eos # (Auto) Baso # (Auto) Abs Immat Gran (auto) Absolute Neuts (auto) Absolute Nucleated RBC Nucleated RBC % Sodium 132 L Potassium 4.8 Chloride 100 Carbon Dioxide 26 Anion Gap 6 L BUN 28 H Creatinine 1.30 Estim Creat Clear Calc 53 Estimated GFR 54 L Glucose 163 H POC Capillary Glucose 130 H 177 H Calcium 8.1 L 11/16/22 11/15/22 11/15/22 06:00 19:49 17:05 WBC 11.8 H RBC 3.85 L Hgb 12.6 L D Hct 36.1 L MCV 93.8 MCH 32.7 MCHC 34.9 RDW 12.2 Plt Count 138 L MPV 9.8 Immature Gran % (Auto) 0.7 H Neut % (Auto) 80.4 H Lymph % (Auto) 10.0 L [place] % (Auto) 8.7 H Eos % (Auto) 0.0 Baso % (Auto) 0.2 Lymph # (Auto) 1.18 [place] # (Auto) 1.0 H Eos # (Auto) 0.0 Baso # (Auto) 0.0 Abs Immat Gran (auto) 0.08 H Absolute Neuts (auto) 9.5 H Absolute Nucleated RBC 0.0 Nucleated RBC % 0.0 Sodium Potassium Chloride Carbon Dioxide Anion Gap BUN Creatinine Estim Creat Clear Calc Estimated GFR Glucose POC Capillary Glucose 221 H 197 H Calcium 11/15/22 14:48 WBC RBC Hgb Hct MCV MCH MCHC RDW Plt Count MPV Immature Gran % (Auto) Neut % (Auto) Lymph % (Auto) [place] % (Auto) Eos % (Auto) Baso % (Auto) Lymph # (Auto) [place] # (Auto) Eos # (Auto) Baso # (Auto) Abs Immat Gran (auto) Absolute Neuts (auto) Absolute Nucleated RBC Nucleated RBC % Sodium Potassium Chloride Carbon Dioxide Anion Gap BUN Creatinine Estim Creat Clear Calc Estimated GFR Glucose POC Capillary Glucose 203 H Calcium Discharge Plan Discharge Patient Disposition: Home, Self-Care Discharge Instructions: See green instruction sheets Patient Instructions: Pain Management (DC), Knee Replacement (DC) Stand Alone Forms: General Discharge
== END 2022-11-16 12:15 | disposition home or self-care (01) ==
LOC: ANHSURGERY 13:52 → ANH2MED 16:15
PROVIDERS: Orthopaedic Surgery; Physician Assistant Surgical; PCP Internal Medicine; Visit Provider Physician Assistant
PROC: (CPT 27447; principal; 2022-11-15 12:00)
DX: M17.11 Unilateral primary osteoarthritis, right knee (principal); I10 Essential (primary) hypertension; E11.9 Type 2 diabetes mellitus without complications; E03.9 Hypothyroidism, unspecified; G47.33 Obstructive sleep apnea (adult) (pediatric); K21.9 Gastro-esophageal reflux disease without esophagitis; E78.00 Pure hypercholesterolemia, unspecified; Z87.891 Personal history of nicotine dependence; E66.9 Obesity, unspecified; Z68.30 Body mass index [BMI] 30.0-30.9, adult; Z79.82 Long term (current) use of aspirin; Z79.4 Long term (current) use of insulin; Z79.84 Long term (current) use of oral hypoglycemic drugs; Z79.51 Long term (current) use of inhaled steroids; Z79.899 Other long term (current) drug therapy
CPT/HCPCS: 27447; 36415; 73560; 80048; 82948; 85025; 86850; 86900; 86901; 97110; 97161; 97165; A9270; C1713; C1776; J0131; J0171; J0690; J1100; J1815; J1885; J2270; J2405; J2704; J2795; J3010; J7120

== ENCOUNTER 2023-02-22 04:07 | Day surgery (SDC) | payer MEDICARE, OTHER, SELFPAY ==
[2023-02-18 13:39] VITALS: BMI 30.9
[2023-02-22 07:34] VITALS: BP 135/80; PULSE 71; RESP 16; TEMP 35.9; O2SAT 96
[2023-02-22] MEDS: LACTATED RINGERS 1,000 ML 150 ML IV CONT (07:44)
[2023-02-22 07:45] LABS: Glucose Point of Care 257 mg/dl (65-105)
--- NOTE | 2023-02-22 08:10 | PM.HPGS ---
History of Present Illness History of Present Illness Consent: Risks, benefits, and alternatives have been discussed and questions answered. Patient agrees to proceed with procedure. Chief complaint: hx colon polyps Narrative: Mike Monson is a 72 year old male with last colonoscopy about 10 years ago Review of Systems Constitutional: Constitutional: Denies headache(s) and Denies weakness Eyes: Eyes: Denies blurry vision ENT: Reports Normal hearing present, Denies headache(s) and Denies neck pain Cardiovascular: Cardiovascular: Denies chest pain and Denies dyspnea Respiratory: Respiratory: Denies dyspnea Gastrointestinal: Gastrointestinal: Reports no additional gastrointestinal complaints Genitourinary: Genitourinary: Denies dysuria Musculoskeletal: Musculoskeletal: Denies neck pain Integumentary/Breasts: Skin/Breast: Denies dry skin Neurologic: Reports Normal hearing present, Denies headache(s) and Denies weakness Psychiatric: Psychiatric: Denies anxiety Endocrine: Endocrine: Denies change in body appearance Hematologic/Lymphatic: Hematologic/Lymphatic: Denies easy bleeding Allergic/Immunologic: Allergic/Immunologic: Denies urticaria PMFSH Past Medical History Medical History (Updated 02/22/23 @ 08:11 by Dharmesh Schwab MD) Arthritis Back pain Colon cancer screening Diabetes Gastroesophageal reflux disease High cholesterol Hypertension Hypothyroidism Incomplete tear of right rotator cuff Obesity DELMER (obstructive sleep apnea) Primary osteoarthritis of right hip Primary osteoarthritis of right knee Surgical History Surgical History History of hammertoe correction History of repair of rotator cuff History of right knee surgery History of total right knee replacement (~11/15/22) Status post total hip replacement, right Family History Family History Mother Family history of arthritis Sibling Family history of malignant neoplasm Social History Social History Smoking packs per day: 1 Smoking cigarettes per day: 20.0 Years smoked: 20 Smoking pack-years: 20.00 Smoking status: Former smoker Tobacco type: cigarettes Smokeless tobacco user: chewing tobacco Smoking end date: 02/12/78 Additional smoking assessment comments: QUIT CIGARS & SMOKELESS TOBACCO -1981 Alcohol intake: current Alcohol use details: 1-2 a month Substance use: current Substance use type: does not use Lack of Transportation: YES Lack of Food: Never True Current Housing: I Have Housing Concerned About Future Housing: No Difficulty Paying Gas/Electric Bills: No Difficulty Paying for Meds: No Currently Unemployed: No Education: High School Diploma/GED Difficulty w/ Childcare or Family Care: No Living arrangements: with family Additional living arrangements comments: Gender identity (if verbalized by the patient): Male Spiritual care concerns: No Meds Home Medications and Allergies Home Medications Medication Instructions Recorded Confirmed Type aspirin 81 mg tablet,delayed 81 mg PO DAILY 10/16/19 02/22/23 History release (Ecotrin Low Strength) cholecalciferol (vitamin D3) 50 4,000 unit PO DAILY 10/16/19 02/22/23 History mcg (2,000 unit) chewable tablet empagliflozin 25 mg tablet 25 mg PO DAILY 10/16/19 02/22/23 History insulin glargine 100 unit/mL 25 unit subcut HS 10/16/19 02/22/23 History subcutaneous solution (Lantus U-100 Insulin) levothyroxine 112 mcg tablet 112 mcg PO DAILY 10/16/19 02/22/23 History pantoprazole 40 mg tablet,delayed 40 mg PO QAM 10/16/19 02/22/23 History release acetaminophen 650 mg 1,300 mg PO Q12H PRN Pain 10/18/22 02/22/23 History tablet,extended release albuterol sulfate 90 mcg/actuation 2 inh inhalation Q6-12H PRN Dyspnea 10/18/22
--- NOTE | 2023-02-22 08:15 | WPDANESEPPF ---
Anes - Initial Pre Proc Eval Procedure: Operation Date: 02/22/23 08:30 Proposed Procedures p Colonoscopy - Dharmesh Schwab MD Date/Time: 02/22/23 08:15 Surgeon: Dharmesh Schwab MD Pre Op Diagnosis: hx colon polyps Patient Data Age: 72 Gender: M Height: 1.78 m Weight: 92.1 kg Last Vital Signs Temp 35.9 C L 02/22/23 07:34 Pulse 71 02/22/23 07:34 Resp 16 02/22/23 07:34 BP 135/80 02/22/23 07:34 Pulse Ox 96 02/22/23 07:34 O2 Del Method Room Air 02/22/23 07:34 Allergies Allergy/AdvReac Type Severity Reaction Status Date / Time Penicillins Allergy Unknown Rash Verified 02/22/23 07:29 Sulfa (Sulfonamide Allergy Unknown Rash Verified 02/22/23 07:29 Antibiotics) Home Medications Medication Instructions Recorded Confirmed Type aspirin 81 mg tablet,delayed 81 mg PO DAILY 10/16/19 02/22/23 History release (Ecotrin Low Strength) cholecalciferol (vitamin D3) 50 4,000 unit PO DAILY 10/16/19 02/22/23 History mcg (2,000 unit) chewable tablet empagliflozin 25 mg tablet 25 mg PO DAILY 10/16/19 02/22/23 History insulin glargine 100 unit/mL 25 unit subcut HS 10/16/19 02/22/23 History subcutaneous solution (Lantus U-100 Insulin) levothyroxine 112 mcg tablet 112 mcg PO DAILY 10/16/19 02/22/23 History pantoprazole 40 mg tablet,delayed 40 mg PO QAM 10/16/19 02/22/23 History release acetaminophen 650 mg 1,300 mg PO Q12H PRN Pain 10/18/22 02/22/23 History tablet,extended release albuterol sulfate 90 mcg/actuation 2 inh inhalation Q6-12H PRN Dyspnea 10/18/22 02/22/23 History aerosol inhaler atorvastatin 40 mg tablet 40 mg PO DAILY 10/18/22 02/22/23 History insulin aspart U-100 100 unit/mL 13 unit subcut BID 10/18/22 02/22/23 History (3 mL) subcutaneous pen (Novolog FlexPen U-100 Insulin aspart) ipratropium bromide 21 mcg (0.03 1 spray intranasal DAILY PRN 10/18/22 02/22/23 History %) nasal spray Congestion metoprolol tartrate 100 mg tablet 50 mg PO BID 10/18/22 02/22/23 History semaglutide 1 mg/dose (2 mg/1.5 1 mg subcut WEEKLY 10/18/22 02/22/23 History mL) subcutaneous pen injector (Ozempic) tamsulosin 0.4 mg capsule 0.4 mg PO DAILY 10/18/22 02/22/23 History valsartan 160 mg tablet 160 mg PO QAM 10/18/22 02/22/23 History oxycodone-acetaminophen 5 mg-325 2 tablet PO BID PRN breakthrough 02/09/23 02/22/23 Rx mg tablet pain, severe #40 tabs Laboratory Tests 02/22/23 07:42 POC Capillary Glucose 257 H mg/dl (65-105) Patient hx anesthesia problems: none Family hx anesthesia problems: none Results Review: All pre-operative results and documents have been reviewed as part of the pre-operative evaluation. [facility], [facility] Past Medical History Medical History Arthritis Back pain Colon cancer screening Diabetes Gastroesophageal reflux disease High cholesterol Hypertension Hypothyroidism Incomplete tear of right rotator cuff Obesity DELMER (obstructive sleep apnea) Primary osteoarthritis of right hip Primary osteoarthritis of right knee Surgical History Surgical History History of hammertoe correction History of repair of rotator cuff History of right knee surgery History of total right knee replacement (~11/15/22) Status post total hip replacement, right Family History Family History Mother Family history of arthritis Sibling Family history of malignant neoplasm Social History Social History Smoking packs per day: 1 Smoking cigarettes per day: 20.0 Years smoked: 20 Smoking pack-years: 20.00 Smoking status: Former smoker Tobacco type: cigarettes Smokeless tobacco user: chewing tobacco Smoking end date: 02/12/78 Additional smoking assessment comments: QUIT CIGARS & SMOKELESS TOBACCO -198
[2023-02-22 08:34] VITALS: BP 98/62; PULSE 65; RESP 15; O2SAT 93
[2023-02-22 08:44] VITALS: BP 118/76; PULSE 63; RESP 18; O2SAT 93
[2023-02-22 08:54] VITALS: BP 110/77; PULSE 66; RESP 19; O2SAT 95
[2023-02-22 09:08] LABS: Glucose Point of Care 250 mg/dl (65-105)
== END 2023-02-22 09:00 | disposition home or self-care (01) ==
PROVIDERS: PCP Internal Medicine; Visit Provider Internal Medicine Gastroenterology
PROC: 0DJD8ZZ Inspection of Lower Intestinal Tract, Via Natural or Artificial Opening Endoscopic (ICD-10-PCS; CPT 45378; principal; 2023-02-22 08:30)
DX: Z12.11 Encounter for screening for malignant neoplasm of colon (principal); K64.8 Other hemorrhoids; I10 Essential (primary) hypertension; E78.00 Pure hypercholesterolemia, unspecified; E11.9 Type 2 diabetes mellitus without complications; K21.9 Gastro-esophageal reflux disease without esophagitis; E03.9 Hypothyroidism, unspecified; G47.33 Obstructive sleep apnea (adult) (pediatric); Z87.891 Personal history of nicotine dependence; E66.9 Obesity, unspecified; Z68.29 Body mass index [BMI] 29.0-29.9, adult; Z79.84 Long term (current) use of oral hypoglycemic drugs; Z79.4 Long term (current) use of insulin; Z79.51 Long term (current) use of inhaled steroids; Z79.899 Other long term (current) drug therapy; Z79.891 Long term (current) use of opiate analgesic
CPT/HCPCS: G0121; 82948; J2704; J7120

== ENCOUNTER 2024-01-10 11:49 | Outpatient (CLI) | payer MEDICARE, OTHER, SELFPAY ==
[2024-01-10 13:01] LABS: Basophils Percent Auto 0.7 % (0.2-1.2); Eosinophils Absolute Auto 0.2 K/mm3 (0-0.3); Hematocrit 44.9 % (42.0-52.0); Hemoglobin 15.7 g/dL (14.0-18.0); Immature Granulocyte Absolute 0.05 K/mm3 (0.00-0.031); Immature Granulocyte Percent A 1.1 % (0-0.5); Immature Platelet Fraction Pct 3.8 % (0.9-11.2); Lymphocytes Absolute Auto 1.54 K/mm3 (0.9-3.2); Lymphocytes Percent Auto 33.9 % (18.3-44.2); Mean Corpuscular Hemoglobin 33.3 pg (26-34); Mean Corpuscular Volume 95.1 fl (80-100); Mean Platelet Volume 10.1 fl (7.4-10.4); Monocytes Absolute Auto 0.3 K/mm3 (0.1-0.6); Monocytes Percent Auto 7.3 % (2.6-8.5); Neutrophils Absolute Auto 2.4 K/mm3 (1.3-6.7); Platelet Count Result 131 k/mm3 (150-375); Red Blood Count 4.72 M/mm3 (4.6-6.20); Red Cell Distribution Width 12.3 % (11.5-14.5); White Blood Count 4.5 K/mm3 (4.5-10.0)
[2024-01-10 13:09] LABS: Alanine Aminotransferase 19 U/L (6-50); Albumin Level 4.1 g/dL (3.5-5.1); Alkaline Phosphatase 116 U/L (38-126); Anion Gap 7 mmol/L (4-12); Aspartate Amino Transferase 21 U/L (17-59); Bilirubin,Total 1.1 mg/dL (0.2-1.3); Blood Urea Nitrogen 18 mg/dL (9-20); Calcium 9.3 mg/dL (8.4-10.2); Carbon Dioxide 26 mmol/L (22-30); Chloride 102 mmol/L (98-107); Cholesterol 144 mg/dL (0-200); Estimated Glomerular Filt Rate > 60; Glucose 269 mg/dL (65-110); HDL Direct 41 mg/dL; Potassium 4.3 mmol/L (3.4-5.0); Sodium 135 mmol/L (137-145); Triglycerides 128 mg/dL (<150)
[2024-01-10 13:20] LABS: LDL Cholesterol Direct 87 mg/dL
[2024-01-10 13:27] LABS: Creatinine Urine 90.4 mg/dL
[2024-01-10 13:32] LABS: MALB Creatinine Ratio 16.9 mg/g (0-30); Microalbumin Urine Random 15.3 mg/L (0-16.7)
[2024-01-10 13:42] LABS: Vitamin D 25 Hydroxy 58.6 ng/mL
[2024-01-10 13:45] LABS: Hemoglobin A1C 9.4 % (<5.7)
[2024-01-13 13:00] LABS: Prostate Specific Antigen 0.5 ng/mL (< OR = 4.0)
== END 2024-01-10 11:50 | disposition home or self-care (01) ==
LOC: ANHLAB 11:52
PROVIDERS: PCP Internal Medicine; Visit Provider Internal Medicine
DX: E11.9 Type 2 diabetes mellitus without complications (principal); D75.1 Secondary polycythemia; E55.9 Vitamin D deficiency, unspecified; E03.9 Hypothyroidism, unspecified; E78.5 Hyperlipidemia, unspecified; N40.0 Benign prostatic hyperplasia without lower urinary tract symptoms
CPT/HCPCS: 36415; 80053; 80061; 82043; 82306; 83036; 84153; 84443; 85025; 85055

== ENCOUNTER 2024-02-14 13:00 | Outpatient (RCR) | payer MEDICARE, OTHER, SELFPAY | END 2024-04-17 11:32 | disposition home or self-care (01) | LOC: ANHDMC 13:00 | PROVIDERS: PCP Internal Medicine; Visit Provider Internal Medicine | DX: E11.65 Type 2 diabetes mellitus with hyperglycemia (principal); Z71.89 Other specified counseling | CPT/HCPCS: G0108 ==